=== PATIENT | male | born 1955 | race African-American/Black ===

== ENCOUNTER → 2021-01-28 10:50 | Outpatient (BNVA) | payer MEDICARE, MEDICAID, SELFPAY | DX: R31.9 Hematuria, unspecified (principal) | CPT/HCPCS: 99202 ==

== ENCOUNTER 2021-03-21 12:59 | Outpatient (REF) | payer MEDICARE, MEDICAID, SELFPAY ==
--- NOTE | ~2021-03-21 | CT_ITS ---
EXAMINATION: CT HEAD WITHOUT CONTRAST CLINICAL INFORMATION: Transient cerebral ischemic attack COMPARISON: None TECHNIQUE: Contiguous axial imaging was performed from the skull base to vertex without intravenous administration of contrast. This CT examination was performed using dose optimization techniques as appropriate, variously including the following: *Automated exposure control *Adjustment of mA and/or kV according to patient size (this includes techniques or standardized protocols for targeted exams where dose is matched to indication/reason for exam; i.e. extremities or head) *Use of iterative reconstruction technique DLP: 772 mGy-cm FINDINGS: There is no evidence of an extra-axial collection. There is no evidence of intra-axial or extra-axial hemorrhage. The ventricles and extra-axial CSF spaces are appropriate. There is a small area of low attenuation seen in the periventricular white matter of the right frontal lobe measuring 3 x 5 mm axial image 46 series 4. It is uncertain whether this represents periventricular white matter disease or could represent a small infarct. No mass or mass effect is seen. Review at bone windows is normal. Bony structures are normal. Visualized paranasal sinuses, mastoid air cells and middle ears are clear. CT/CT head/brain wo con IMPRESSION: Small focal area of low attenuation in the periventricular white matter of the right frontal lobe. It is uncertain whether this represents an area periventricular white matter disease or could represent a small infarct.
== END 2021-03-21 13:00 | disposition home or self-care (01) ==
LOC: HO.CT 12:59
PROVIDERS: PCP Internal Medicine Geriatric Medicine; Visit Provider Internal Medicine Geriatric Medicine
DX: G45.9 Transient cerebral ischemic attack, unspecified (principal)
CPT/HCPCS: 70450

== ENCOUNTER 2021-03-24 12:55 | Outpatient (REF) | payer MEDICARE, MEDICAID, SELFPAY ==
--- NOTE | ~2021-03-24 | US_ITS ---
EXAMINATION: US EXTRACRANIAL CAROTID DUPLEX, BILATERAL CLINICAL INFORMATION: TIA COMPARISON: None TECHNIQUE: Real-time ultrasound and Doppler techniques (integrating B-mode 2-D vascular images, Doppler spectral analysis and color-flow Doppler imaging) were utilized to interrogate the extracranial carotid arteries, the vertebral arteries and proximal subclavian arteries bilaterally. The degree of stenosis is determined by criteria similar to NASCET. FINDINGS: Right Side: 1. There is atherosclerotic plaque seen in the bifurcation/proximal ICA region. 2. The common carotid artery PSV proximally is 96.7 cm/s and distally 88.5 cm/s. 3. The proximal internal carotid artery velocities are 77.4 cm/s systolic and 22.9 cm/s diastolic. 4. The proximal external carotid artery PSV is 135 cm/s. 5. The vertebral artery shows antegrade flow. 6. The subclavian artery waveforms are normal. Left Side: 1. There is significant atherosclerotic plaque seen in the bifurcation/proximal ICA region. 2. The common carotid artery PSV proximally is 69.8 cm/s and distally 69.2 cm/s. 3. The proximal internal carotid artery velocities are 121 cm/s systolic and 38.3 cm/s diastolic. 4. The external carotid artery appears occluded 5. The vertebral artery shows antegrade flow. 6. The subclavian artery waveforms are normal. US/US carotid duplex BI IMPRESSION: 1. RIGHT: Minimal, non-hemodynamically significant stenosis of the proximal right internal carotid artery corresponding to a 0-49% stenosis by velocity criteria. 2. LEFT: Minimal, non-hemodynamically significant stenosis of the proximal left internal carotid artery corresponding to a 0-49% stenosis by velocity criteria. 3. There the left external carotid arteries appears occluded.
== END 2021-03-24 12:56 | disposition home or self-care (01) ==
LOC: HO.US 12:55
PROVIDERS: PCP Internal Medicine Geriatric Medicine; Visit Provider Internal Medicine Geriatric Medicine
DX: G45.9 Transient cerebral ischemic attack, unspecified (principal)
CPT/HCPCS: 93880

== ENCOUNTER → 2021-05-05 10:33 | Outpatient (BNVA) | payer MEDICARE, MEDICAID, SELFPAY | PROVIDERS: PCP Internal Medicine Geriatric Medicine; Visit Provider Surgery Vascular Surgery | DX: I65.23 Occlusion and stenosis of bilateral carotid arteries (principal) | CPT/HCPCS: 99202 ==

== ENCOUNTER 2021-11-24 12:24 | Outpatient (REF) | payer MEDICARE, MEDICAID, SELFPAY ==
--- NOTE | ~2021-11-24 | US_ITS ---
EXAMINATION: US EXTRACRANIAL CAROTID DUPLEX, BILATERAL CLINICAL INFORMATION: TIA COMPARISON: Carotid ultrasound 03/24/2021 TECHNIQUE: Real-time ultrasound and Doppler techniques (integrating B-mode 2-D vascular images, Doppler spectral analysis and color-flow Doppler imaging) were utilized to interrogate the extracranial carotid arteries, the vertebral arteries and proximal subclavian arteries bilaterally. The degree of stenosis is determined by criteria similar to NASCET. FINDINGS: Right Side: 1. There is mild atherosclerotic plaque seen in the bifurcation/proximal ICA region. 2. The common carotid artery PSV proximally is 86 cm/s and distally 93 cm/s. 3. The proximal internal carotid artery velocities are 68 cm/s systolic and 25 cm/s diastolic. 4. The proximal external carotid artery PSV is 89 cm/s. 5. The vertebral artery shows antegrade flow. 6. The subclavian artery waveforms are normal. Left Side: 1. There is moderate atherosclerotic plaque seen in the bifurcation/proximal ICA region. 2. The common carotid artery PSV proximally is 79 cm/s and distally 72 cm/s. 3. The proximal internal carotid artery velocities are 127 cm/s systolic and 49 cm/s diastolic. 4. The proximal external carotid artery is occluded. There is distal reconstitution. 5. The vertebral artery shows antegrade flow. 6. The subclavian artery waveforms are normal. US/US carotid duplex BI IMPRESSION: 1. RIGHT: Minimal, non-hemodynamically significant stenosis of the proximal right internal carotid artery corresponding to a 0-49% stenosis by velocity criteria. 2. LEFT: Moderate, hemodynamically significant stenosis of the proximal left internal carotid artery corresponding to a 50-79% stenosis by velocity criteria. 3. The left external carotid artery is occluded. 4. The category of disease in the left internal carotid artery has progressed from 0-49% to 50-79% 03/24/2021. The category of disease on the right internal carotid artery is stable.
== END 2021-11-24 12:25 | disposition home or self-care (01) ==
LOC: HO.US 12:24
PROVIDERS: Visit Provider Surgery Vascular Surgery
DX: I65.23 Occlusion and stenosis of bilateral carotid arteries (principal)
CPT/HCPCS: 93880

== ENCOUNTER → 2021-12-01 09:28 | Outpatient (BNVA) | payer MEDICARE, MEDICAID, SELFPAY | PROVIDERS: PCP Internal Medicine Geriatric Medicine; Visit Provider Surgery Vascular Surgery | DX: I65.23 Occlusion and stenosis of bilateral carotid arteries (principal) | CPT/HCPCS: 99212 ==

== ENCOUNTER 2022-12-11 09:26 | Outpatient (REF) | payer MEDICARE, MEDICAID, SELFPAY ==
--- NOTE | ~2022-12-11 | US_ITS ---
EXAMINATION: US EXTRACRANIAL CAROTID DUPLEX, BILATERAL CLINICAL INFORMATION: Carotid stenosis COMPARISON: 11/24/2021 and 03/24/2021 TECHNIQUE: Real-time ultrasound and Doppler techniques (integrating B-mode 2-D vascular images, Doppler spectral analysis and color-flow Doppler imaging) were utilized to interrogate the extracranial carotid arteries, the vertebral arteries and proximal subclavian arteries bilaterally. The degree of stenosis is determined by criteria similar to NASCET. FINDINGS: Right Side: 1. There is minimal atherosclerotic plaque seen in the bifurcation/proximal ICA region. 2. The common carotid artery PSV proximally is 81.6 cm/s and distally 76.2 cm/s. 3. The proximal internal carotid artery velocities are 72.0 cm/s systolic and 11.9 cm/s diastolic. 4. The proximal external carotid artery PSV is 68.9 cm/s. 5. The vertebral artery shows antegrade flow. 6. The subclavian artery waveforms are normal. Left Side: 1. There is moderate atherosclerotic plaque seen in the bifurcation/proximal ICA region. 2. The common carotid artery PSV proximally is 54.9 cm/s and distally 82.5 cm/s. 3. The proximal internal carotid artery velocities are 143 cm/s systolic and 52.0 cm/s diastolic. 4. The proximal external carotid artery is chronically occluded. 5. The vertebral artery shows antegrade flow. 6. The subclavian artery waveforms are normal. US/US carotid duplex BI IMPRESSION: 1. RIGHT: Minimal, non-hemodynamically significant stenosis of the proximal right internal carotid artery corresponding to a 0-49% stenosis by velocity criteria. 2. LEFT: Moderate, hemodynamically significant stenosis of the proximal left internal carotid artery corresponding to a 50-79% stenosis by velocity criteria. 3. 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 There is no change in the category severity of disease when compared to the previous study dated 11/24/2021.
== END 2022-12-11 09:27 | disposition home or self-care (01) ==
LOC: HO.US 09:26
PROVIDERS: PCP Internal Medicine Geriatric Medicine; Visit Provider Surgery Vascular Surgery
DX: I65.23 Occlusion and stenosis of bilateral carotid arteries (principal)
CPT/HCPCS: 93880

== ENCOUNTER 2023-01-30 09:25 | Outpatient (AMB) | payer MEDICARE, MEDICAID, SELFPAY ==
[2023-01-30 09:28] VITALS: BP 116/72; BMI 27.4
--- NOTE | 2023-01-30 09:28 | MHC.OFFVIS ---
Intake Vital Signs 01/30/23 09:28 01/30/23 09:34 Height 5 ft 6 in Weight 170 lb BMI 27.4 BP 116/72 108/60 Blood Pressure Location Lt brachial Rt brachial Position Sitting Sitting Intake Visit Reasons: 1 year follow up after carotid US 12/11/22 Intake Note: 1 yr follow up carotid US 12/11/22. Pt states no complaints Accompanied by: Self / Same As Patient Allergies No Known Allergies Allergy (Verified 01/30/23 09:31) HPI 1 year follow up after carotid US 12/11/22 HPI Details Very pleasant 67-year-old gentleman presents for follow-up regarding carotid disease. He has had routine surveillance follow-up for the last 2 years. It originally began with the history of a TIA episode. He has had no occurrences over the past 2 years. He is currently being maintained on aspirin and high-dose statin. He now presents for routine surveillance follow-up with ultrasound. [facility] Medical History Hematuria Chronic obstructive pulmonary disease (COPD) Hypertriglyceridemia Hypertriglyceridemia Primary osteoarthritis of hips, bilateral Social History Patient Tobacco Use Status: Former Tobacco user Review of Systems Const All systems reviewed & are unremarkable except as noted in HPI and below Reports no additional complaints ENT Reports Normal hearing present Card Denies chest pain, Denies chest pain at rest, Denies chest pain with activity and Denies pedal edema Resp Denies cough GI Denies abdominal pain Musc Denies abnormal gait, Denies muscle cramps and Denies radiating pain into limb Skin/Breast Denies skin ulcer and Denies wounds Neuro Reports Normal hearing present and Denies abnormal gait Psych Reports no additional complaints Physical Exam Vital Signs: Last Vital Signs BP 108/60 01/30/23 09:34 BMI result Body Mass Index 27.4 Const General: cooperative, healthy appearing and comfortable Orientation/consciousness: oriented to person, oriented to place and oriented to time HEENT Head: Yes normal to inspection Neck Neck: Yes normal visual inspection Carotids: no bruits Chest Chest palpation & inspection: normal inspection of the chest Resp Effort & Inspection: normal respiratory effort and able to speak in complete sentences Auscultation: clear to auscultation bilaterally, no crackles, no rales, no rhonchi and no wheezes Cardio Rate: regular rate Rhythm: regular rhythm Heart sounds: S1 normal heart sound present and S2 normal heart sound present Bruits: no carotid bruits Peripheral pulses: Peripheral pulses 2+ throughout GI Inspection: Yes normal to inspection Skin Wounds: no wounds Hair: normal Neuro General: oriented to person, oriented to place and oriented to time Cranial nerves: Yes CN's II-XII intact bilaterally and Yes Normal hearing present Cognition (Neuro): normal cognition Motor exam (neuro): 5/5 motor strength present throughout Extrem Other: venous exam: No significant superficial varicosities or spider telangiectasias, minimal edema General: No clubbing, No cyanosis and No edema Psych Appearance: grossly normal Mental Status: mental status grossly normal Speech and movement: Normal speech and movement present Results Reviewed Results Reviewed: Noninvasive carotid testing demonstrates right-sided 0-49 left side 50-79% with a peak systolic of only 143. Written report and images were reviewed. This testing was dated 12/11/2022 and is consistent with similar findings from a year ago. Assessment & Plan Assessment & Plan (1) Bilateral carotid artery stenosis: Code(s): I65.23 - Occlusion and stenosis of bilateral carotid arteries Plan: In short patient has asymptomatic carotid disease. We have reviewed signs and symptoms of a stroke. We also discussed risk factor modification inclusive a healthy diet low in cholesterol. The patient will follow up with us with surveillance ultrasound of the carotids 1 year. Should there be any changes or signs or symptoms of a stroke we will be happy to see them back sooner. Thank you for allowing us to participate in this patient's care. If there are any questions or concerns please do not hesitate to contact us. Orders: Orders US carotid duplex BI 364 Days I65.23 - Occlusion and stenosis of bilateral carotid arteries Coding Level of Care Code Est Pt Level 4 (54126) Diagnoses Bilateral carotid artery stenosis I65.23
[2023-01-30 09:34] VITALS: BP 108/60
== END 2023-01-30 09:50 | disposition home or self-care (01) ==
PROVIDERS: PCP Internal Medicine Geriatric Medicine; Visit Provider Surgery Vascular Surgery
DX: I65.23 Occlusion and stenosis of bilateral carotid arteries (principal)
CPT/HCPCS: 99213

== ENCOUNTER → 2023-01-30 09:25 | Outpatient (BNVA) | payer MEDICARE, MEDICAID, SELFPAY | PROVIDERS: PCP Internal Medicine Geriatric Medicine; Visit Provider Surgery Vascular Surgery | DX: I65.23 Occlusion and stenosis of bilateral carotid arteries (principal) | CPT/HCPCS: 99212 ==

== ENCOUNTER 2023-03-09 08:45 | Outpatient (REF) | payer MEDICARE, MEDICAID, SELFPAY ==
[2023-03-09 11:35] LABS: MANUAL DIFF FLAG NO
[2023-03-09 11:51] LABS: Alanine Aminotransferase 58 U/L (0-40); Alkaline Phosphatase 134 U/L (39-117); Anion Gap 12 (12-20); Aspartate Amino Transferase 36 U/L (5-37); Basophils Percent Auto 0.7 % (0-2); Bilirubin Total 1.4 mg/dL (0.0-1.0); Blood Urea Nitrogen 19 mg/dL (9-16); Calcium 9.4 mg/dL (8.4-10.2); Carbon Dioxide 24 mmol/L (22-29); Chloride 108 mmol/L (96-108); Cholesterol 117 mg/dL (<200); Eosinophils Absolute Auto 0.4 X10*3/uL (0.0-0.4); Eosinophils Percent Auto 9.6 % (0-4); Estimated Glomerular Filt Rate > 60; Glucose Random 116 mg/dL (60-115); HDL Cholesterol 52 mg/dL (>40); Hematocrit 44.5 % (42.0-52.0); Hemoglobin 15.1 g/dl (14.0-18.0); Imm Gran Abs Auto 0.01 X10*3/uL (0.00-0.03); Imm Gran Pct Auto 0.2 % (0.0-0.4); LDL Cholesterol Calculated 50 mg/dL (<100); Lymphocytes Absolute Auto 0.8 X10*3/uL (1.2-4.9); Lymphocytes Percent Auto 19.4 % (20-40); Mean Corpuscular HGB Conc 33.9 g/dl (31.0-36.0); Mean Corpuscular Hemoglobin 28.6 pg (27.0-33.0); Mean Corpuscular Volume 84.3 fL (80.0-98.0); Mean Platelet Volume 12.6 fL (9.4-12.4); Monocytes Absolute Auto 0.3 X10*3/uL (0.1-1.2); Monocytes Percent Auto 7.4 % (2-11); Neutrophils Absolute Auto 2.6 x10*3/uL (2.0-8.3); Neutrophils Percent Auto 62.7 % (45-73); Platelet Count 136 X10*3/uL (160-400); Potassium 3.8 mmol/L (3.3-5.1); Red Blood Count 5.28 X10*6/uL (4.60-5.80); Red Cell Distribution Width 13.1 % (11.0-16.0); Sodium 140 mmol/L (135-145); Total Protein 7.6 g/dL (6.5-8.0); Triglycerides 79 mg/dL (<150); White Blood Count 4.2 X10*3/uL (4.8-10.8)
== END 2023-03-09 08:46 | disposition home or self-care (01) ==
LOC: HO.HHCL 08:45
PROVIDERS: Visit Provider Internal Medicine Geriatric Medicine
DX: E11.9 Type 2 diabetes mellitus without complications (principal); I10 Essential (primary) hypertension; I65.23 Occlusion and stenosis of bilateral carotid arteries
CPT/HCPCS: 36415; 80053; 80061; 85025

== ENCOUNTER 2023-09-11 11:18 | Outpatient (REF) | payer OTHER, SELFPAY ==
[2023-09-11 13:48] LABS: Anion Gap 9 (12-20); Blood Urea Nitrogen 26 mg/dL (9-16); Calcium 9.1 mg/dL (8.4-10.2); Carbon Dioxide 31 mmol/L (22-29); Chloride 105 mmol/L (96-108); Estimated Glomerular Filt Rate > 60; Glucose Random 155 mg/dL (60-115); Potassium 3.9 mmol/L (3.3-5.1); Sodium 141 mmol/L (135-145)
== END 2023-09-11 11:19 | disposition home or self-care (01) ==
LOC: HO.HHCL 11:18
PROVIDERS: Visit Provider Internal Medicine Geriatric Medicine
DX: I10 Essential (primary) hypertension (principal)
CPT/HCPCS: 36415; 80048

== ENCOUNTER 2024-01-29 09:40 | Outpatient (REF) | payer OTHER, SELFPAY ==
--- NOTE | ~2024-01-29 | US_ITS ---
EXAMINATION: US EXTRACRANIAL CAROTID DUPLEX, BILATERAL CLINICAL INFORMATION: Carotid stenosis. History of left external carotid artery occlusion COMPARISON: 11/24/2021 and 12/11/2022 TECHNIQUE: Real-time ultrasound and Doppler techniques (integrating B-mode 2-D vascular images, Doppler spectral analysis and color-flow Doppler imaging) were utilized to interrogate the extracranial carotid arteries, the vertebral arteries and proximal subclavian arteries bilaterally. The degree of stenosis is determined by criteria similar to NASCET. FINDINGS: Right Side: 1. There is mild atherosclerotic plaque seen in the bifurcation/proximal ICA region. 2. The common carotid artery PSV proximally is 127 cm/s and distally 71.8 cm/s. 3. The proximal internal carotid artery velocities are 93.8 cm/s systolic and 18.7 cm/s diastolic. 4. The proximal external carotid artery PSV is 93.4 cm/s. 5. The vertebral artery shows antegrade flow. 6. The subclavian artery waveforms are normal. Left Side: 1. There is severe atherosclerotic plaque seen in the bifurcation/proximal ICA region. 2. The common carotid artery PSV proximally is 64.5 cm/s and distally 67.2 cm/s. 3. The proximal internal carotid artery velocities are 140 cm/s systolic and 45.1 cm/s diastolic. 4. The proximal external carotid artery is occluded 5. The vertebral artery shows antegrade flow. 6. The subclavian artery waveforms are normal. US/US carotid duplex BI IMPRESSION: 1. RIGHT: Minimal, non-hemodynamically significant stenosis of the proximal right internal carotid artery corresponding to a 0-49% stenosis by velocity criteria. 2. LEFT: Moderate, hemodynamically significant stenosis of the proximal left internal carotid artery corresponding to a 50-79% stenosis by velocity criteria. 3. There is no change in the category severity of disease when compared to the previous study dated 12/11/2022. Electronically signed by: Cayetano Nash MD 01/31/2024 02:42 PM EDT
== END 2024-01-29 09:41 | disposition home or self-care (01) ==
LOC: HO.US 09:40
PROVIDERS: PCP Internal Medicine Geriatric Medicine; Visit Provider Surgery Vascular Surgery
DX: I65.23 Occlusion and stenosis of bilateral carotid arteries (principal)
CPT/HCPCS: 93880

== ENCOUNTER 2024-03-05 11:19 | Outpatient (REF) | payer OTHER, SELFPAY ==
--- NOTE | ~2024-03-05 | XR_ITS ---
EXAMINATION: XR CHEST CLINICAL INFORMATION: Left-sided chest pain COMPARISON: None available. TECHNIQUE: 2 views of the chest were obtained. FINDINGS: Lungs grossly are clear. Minimal bilateral basilar pleural thickening seen. No acute effusions. Heart and pulmonary vessels are normal. XR/XR chest 2V IMPRESSION: No active disease. Electronically signed by: Richard Watt MD 03/05/2024 02:10 PM EDT RP
[2024-03-05 15:02] LABS: D Dimer High Sensitivity 256 NG/ML
== END 2024-03-05 11:20 | disposition home or self-care (01) ==
LOC: HO.HHCL 11:19
PROVIDERS: Visit Provider Emergency Medicine
DX: R07.89 Other chest pain (principal)
CPT/HCPCS: 36415; 71046; 85379

== ENCOUNTER 2024-04-28 11:36 | Outpatient (REF) | payer OTHER, SELFPAY ==
[2024-04-28 13:11] LABS: MANUAL DIFF FLAG NO
[2024-04-28 13:25] LABS: Basophils Absolute Auto 0.1 X10*3/uL (0.0-0.2); Basophils Percent Auto 1.4 % (0-2); Eosinophils Absolute Auto 0.2 X10*3/uL (0.0-0.4); Eosinophils Percent Auto 6.5 % (0-4); Hematocrit 43.6 % (42.0-52.0); Hemoglobin 14.6 g/dl (14.0-18.0); Imm Gran Abs Auto 0.01 X10*3/uL (0.00-0.03); Imm Gran Pct Auto 0.3 % (0.0-0.4); Lymphocytes Absolute Auto 1.2 X10*3/uL (1.2-4.9); Lymphocytes Percent Auto 34.3 % (20-40); Mean Corpuscular HGB Conc 33.5 g/dl (31.0-36.0); Mean Corpuscular Hemoglobin 28.6 pg (27.0-33.0); Mean Corpuscular Volume 85.3 fL (80.0-98.0); Mean Platelet Volume 11.9 fL (9.4-12.4); Monocytes Absolute Auto 0.3 X10*3/uL (0.1-1.2); Monocytes Percent Auto 9.6 % (2-11); Neutrophils Absolute Auto 1.7 x10*3/uL (2.0-8.3); Neutrophils Percent Auto 47.9 % (45-73); Platelet Count 155 X10*3/uL (160-400); Red Blood Count 5.11 X10*6/uL (4.60-5.80); Red Cell Distribution Width 13.2 % (11.0-16.0); White Blood Count 3.5 X10*3/uL (4.8-10.8)
[2024-04-28 13:39] LABS: Estimated Average Glucose 137 mg/dL; Hemoglobin A1C 169.9004 umol/L; Hemoglobin A1c % 6.4 % (<6.0)
[2024-04-28 13:49] LABS: Alanine Aminotransferase 64 U/L (0-40); Albumin Level 4.1 g/dL (3.5-5.0); Alkaline Phosphatase 104 U/L (39-117); Anion Gap 8 (12-20); Aspartate Amino Transferase 40 U/L (5-37); Bilirubin Total 1.2 mg/dL (0.0-1.0); Blood Urea Nitrogen 21 mg/dL (9-16); Calcium 9.4 mg/dL (8.4-10.2); Carbon Dioxide 31 mmol/L (22-29); Chloride 102 mmol/L (96-108); Cholesterol 130 mg/dL (<200); Estimated Glomerular Filt Rate > 60; Glucose Random 115 mg/dL (60-115); HDL Cholesterol 47 mg/dL (>40); LDL Cholesterol Calculated 60 mg/dL (<100); Potassium 4.3 mmol/L (3.3-5.1); Sodium 137 mmol/L (135-145); Total Protein 7.9 g/dL (6.5-8.0); Triglycerides 118 mg/dL (<150)
[2024-04-28 14:08] LABS: Creatinine Urine 40.66 mg/dL; Microalbumin Urine < 5.0 mg/L
[2024-04-29 08:33] LABS: ~Hepatitis C Antibody Nonreactive (Nonreactive)
== END 2024-04-28 11:37 | disposition home or self-care (01) ==
LOC: HO.HHCL 11:36
PROVIDERS: Visit Provider Internal Medicine Geriatric Medicine
DX: Z11.59 Encounter for screening for other viral diseases (principal); E11.69 Type 2 diabetes mellitus with other specified complication; I10 Essential (primary) hypertension; Z86.73 Personal history of transient ischemic attack (TIA), and cerebral infarction without residual deficits
CPT/HCPCS: 36415; 80053; 80061; 82043; 82570; 83036; 85025; 86803

== ENCOUNTER 2024-09-04 11:51 | Outpatient (REF) | payer OTHER, SELFPAY ==
[2024-09-04 13:18] LABS: MANUAL DIFF FLAG NO
[2024-09-04 13:36] LABS: Basophils Percent Auto 0.9 % (0-2); Eosinophils Absolute Auto 0.2 X10*3/uL (0.0-0.4); Eosinophils Percent Auto 5.4 % (0-4); Hematocrit 44.3 % (42.0-52.0); Hemoglobin 15.2 g/dl (14.0-18.0); Imm Gran Abs Auto 0.01 X10*3/uL (0.00-0.03); Imm Gran Pct Auto 0.3 % (0.0-0.4); Lymphocytes Absolute Auto 1.2 X10*3/uL (1.2-4.9); Lymphocytes Percent Auto 35.5 % (20-40); Mean Corpuscular HGB Conc 34.3 g/dl (31.0-36.0); Mean Corpuscular Hemoglobin 29.3 pg (27.0-33.0); Mean Corpuscular Volume 85.4 fL (80.0-98.0); Mean Platelet Volume 11.7 fL (9.4-12.4); Monocytes Absolute Auto 0.3 X10*3/uL (0.1-1.2); Monocytes Percent Auto 9.7 % (2-11); Neutrophils Absolute Auto 1.7 x10*3/uL (2.0-8.3); Neutrophils Percent Auto 48.2 % (45-73); Platelet Count 161 X10*3/uL (160-400); Red Blood Count 5.19 X10*6/uL (4.60-5.80); Red Cell Distribution Width 13.1 % (11.0-16.0); White Blood Count 3.5 X10*3/uL (4.8-10.8)
[2024-09-04 13:55] LABS: Alanine Aminotransferase 65 U/L (0-40); Anion Gap 11 (12-20); Aspartate Amino Transferase 41 U/L (5-37); Bilirubin Total 0.7 mg/dL (0.0-1.0); Blood Urea Nitrogen 25 mg/dL (9-16); Calcium 9.2 mg/dL (8.4-10.2); Carbon Dioxide 29 mmol/L (22-29); Chloride 104 mmol/L (96-108); Estimated Glomerular Filt Rate > 60; Glucose Random 117 mg/dL (60-115); Potassium 4.3 mmol/L (3.3-5.1); Sodium 140 mmol/L (135-145); Total Protein 7.7 g/dL (6.5-8.0)
[2024-09-04 14:09] LABS: Alkaline Phosphatase 111 U/L (39-117)
--- OUTSIDE RECORDS SUMMARY | 2024-09-04 14:49 | XMS_ITS | Encounter Summary ---
Author Organization [employer] Address [address] [place] [address] [address] [address] Care Team Providers Care Assistant Community Manager Name Role Phone Name, Fuad MASSEY Primary Care Provider [phone] Encounter Details Date Type Department Care Team (Late st Contact Info) Description 05/31/2022 Orders Only [facility] [address] [place] [address] Radha Thomson LPN Social History Tobacco Use Types Packs/Day Years Used Date Smoking Tobacco: Never Assessed Sex and Gender Information Value Date Recorded Sex Assigned at Male 03/20/2022 10:15 AM EDT Legal Sex Male 10:15 AM EDT Gender Identity Male 03/20/2022 10:15 AM EDT Sexual Orientation Straight 03/20/2022 10 :15 AM EDT documented as of this encounter Plan of Treatment Not on file documented as of this encounter Visit Diagnoses Not on filedocumented in this encounter Care Teams Assistant Community Manager Relationship Specialty Start Date End Date Name, MD Fuad [address] [place] [address] PCP - General Family Medicine 07/23/15 documented as of this encounter
--- OUTSIDE RECORDS SUMMARY | 2024-09-04 14:49 | XMS_ITS | Encounter Summary ---
Author Organization [employer] Address [address] [place] [address] [address] [address] Care Team Providers Care Laborer Chicken Farm Name Role Phone Name, Fuad MASSEY Primary Care Provider [phone] Encounter Details Date Type Department Care Team ([facility] st Contact Info) Description 06/27/2022 Orders Only [facility] [address] [place] [address] Jeanine Reyes LPN Social History Tobacco Use Types Packs/Day [...] on filedocumented in this encounter Care Teams Laborer Chicken Farm Relationship Specialty Start Date End Date Name, MD Fuad [address] [place] [id number] PCP - General Family Medicine 07/23/15 documented as of this encounter
--- OUTSIDE RECORDS SUMMARY | 2024-09-04 14:49 | XMS_ITS | Encounter Summary ---
Author Organization [employer] Address [address] [place] [address] [address], [place] [address] Care Team Providers Care Bander Hand Name Role Phone Name, Fuad MASSEY Primary Care Provider [phone] Reason for Visit * Reason Comments Med Refill Encounter Details Date Type Department Care Team ([facility] st Contact Info) Description 05/29/2023 Refill [facility] [address] [place], [place] [phone] Name, MD Fuad [address] [place] [address] High triglycerides Social History Tobacco Use Types Packs/Day Years Used Date Smoking Tobacco: Former Cigarettes Alcohol Use Standard Drinks/Week Comments Never 0 (1 standard drink = 0.6 oz pur e alcohol) Depression Answer Date Recorded Patient Health Questionnaire-9 Score 0 09/06/2022 Housing Stability Answer Date Recorded What is your housing situation today? I have kallie rachel 03/07/[address] you li ve. Do you have problems with any of the following? None of the above 03/07/2023 Food Insecurity Answer Date Recorded Within the past 12 months, y ou worried that your food would run out before you got money to buy more: Never True 03/07/2023 Within the past 12 months,th e food you bought just didn't last and you didn't have enough money to get more: Never True Transportation Answer Date Recorded In the past 12 months, has l ack of transportation kept you from medical appts, meetings, work or from getting things needed for daily living? No 03/07/2023 Utilities Answer Date Recorded In the past 12 months, has t he electric, gas, oil or water company threatened to shut off services in your home? No 03/07/2023 Depression Answer Date Recorded Patient Health Questionnaire-2 Score 0 09/06/2022 Sex and Gender Information Value Date Recorded Sex Assigned at Male 03/20/2022 10:15 AM EDT Legal Sex Male 10:15 AM EDT Gender Identity Male 03/20/2022 10:15 AM EDT Sexual Orientation Straight 03/20/2022 10 :15 AM EDT documented as of this encounter Plan of Treatment Not on file documented as of this encounter Visit Diagnoses Diagnosis High triglycerides Unspecified disorder of lipoid metabolism documented in this encounter Additional Health Concerns Assessment Noted Time PHQ-9 Depression Total Score: 0 09/07/19 23 11:16 AM EDT documented as of this encounter Care Teams Bander Hand Relationship Specialty Start Date End Date Name, MD Fuad [address] [place] [address] PCP - General Family Medicine 07/23/15 documented as of this encounter
--- OUTSIDE RECORDS SUMMARY | 2024-09-04 14:49 | XMS_ITS | Encounter Summary ---
Author Organization [employer] Address [address] [place] [address] [address] [address] Care Team Providers Care Core Machine Tender Name Role Phone Name, Fuad MASSEY Primary Care Provider Reason for Visit * Reason Comments Med Refill Encounter Details Date Type Department Care Team ([facility] st Contact Info) Description 06/25/2024 Refill [facility] MED & PEDS [address] [place], [place] [id number] [facility] [address] [place] [address] Heartburn Social History Tobacco Use Types Packs/Day Years Used Date Smoking Tobacco: Former Cigarettes Alcohol Use Standard Drinks/Week Comments Never 0 (1 standard drink = 0.6 oz pur e alcohol) Depression Answer Date Recorded Patient Health Questionnaire-9 Score 0 09/11/2023 Patient Health Questionnaire-9 Score 0 09/11/2023 Last PHQ-9: Questionnaire Data Not on file 0 09/11/2023 Housing Stability Answer Date Recorded What is your housing situation today? I have kallie ramos 09/11/[address] you li ve. Do you have problems with any of the following? None of the above 09/11/2023 Food Insecurity Answer Date Recorded Within the past 12 months, y ou worried that your food would run out before you got money to buy more: Never True 09/11/2023 Within the past 12 months,th e food you bought just didn't last and you didn't have enough money to get more: Never True Transportation Answer Date Recorded In the past 12 months, has l ack of transportation kept you from medical appts, meetings, work or from getting things needed for daily living? No 09/11/2023 Utilities Answer Date Recorded In the past 12 months, has t he electric, gas, oil or water company threatened to shut off services in your home? No 09/11/2023 Depression Answer Date Recorded Patient Health Questionnaire-2 Score 0 09/11/2023 Sex and Gender Information Value Date Recorded Sex Assigned at Male 03/20/2022 10:15 AM EDT Legal Sex Male 10:15 AM EDT Gender Identity Male 03/20/2022 10:15 AM EDT Sexual Orientation Straight 03/20/2022 10 :15 AM EDT documented as of this encounter Plan of Treatment Not on file documented as of this encounter Visit Diagnoses Diagnosis Heartburn documented in this encounter Additional Health Concerns Assessment Noted Time PHQ-9 Depression Total Score: 0 09/11/19 24 10:55 AM EDT documented as of this encounter Care Teams Core Machine Tender Relationship Specialty Start Date End Date Name, MD Fuad [address] [place] [address] PCP - General Family Medicine 07/23/15 documented as of this encounter
--- OUTSIDE RECORDS SUMMARY | 2024-09-04 14:49 | XMS_ITS | Encounter Summary ---
Author Organization [employer] Address [address] [place] [address] [address] [address] Care Team Providers Care Epoxy Fabrication Supervisor Name Role Phone Name, Fuad MASSEY Primary Care Provider [phone] Encounter Details Date Type Department Care Team (Late st Contact Info) Description 04/28/2022 Orders Only [facility] [address] [place] [address] Radha Thomson LPN Social History Tobacco Use [...] on filedocumented in this encounter Care Teams Epoxy Fabrication Supervisor Relationship Specialty Start Date End Date Name, MD Fuad [address] [place] [address] PCP - General Family Medicine 07/23/15 documented as of this encounter
--- OUTSIDE RECORDS SUMMARY | 2024-09-04 14:49 | XMS_ITS | Encounter Summary ---
Author Organization [employer] Address [address] [facility] [address], [place] [address] Care Team Providers Care Leather Grainer Name Role Phone Name, Fuad MASSEY Primary Care Provider [phone] Reason for Visit * Reason Onset Date Comments chart prep 09/01/2024 Encounter Details Date Type Department Care Team ([facility] st Contact Info) Description 09/01/2024 Telephone [facility] [address] [place], [place] [phone] Name, MD Fuad [address] [place] [address] chart prep Social History Tobacco Use Types Packs/Day Years [...] your housing situation today? I have kallie ramso 09/11/[address] you li [...] AM EDT documented as of this encounter Miscellaneous Notes * Telephone Encounter - Veronica Pringle [place] - 09/01/2024 11:54 AM EDT Chart Prep Labs: done Images: not applicable Referrals: not applicable Vaccines due: yes, rsv. Screenings: colonoscopy Overdue care gaps: A1c, Glucose, SDOH, PHQ-9, RAÚL-7, and Disability screen documented in this encounter Plan of Treatment Not on file documented as of this encounter Visit Diagnoses Not on filedocumented in this encounter Additional Health Concerns Assessment Noted Time PHQ-9 Depression Total Score: 0 09/11/19 24 10:55 AM EDT documented as of this encounter Care Teams Leather Grainer Relationship Specialty Start Date End Date Name, MD Fuad [address] [place] [address] PCP - General Family Medicine 07/23/15 documented as of this encounter
--- OUTSIDE RECORDS SUMMARY | 2024-09-04 14:49 | XMS_ITS | Encounter Summary ---
Author Organization [employer] Address [address] [place] [address] Care Team Providers Care Survival Equipment Repairer Name Role Phone Name, Fuad MASSEY Primary Care Provider [phone] Reason for Visit * Reason Comments Med Refill Encounter Details Date Type Department Care Team ([facility] st Contact Info) Description 11/29/2023 Refill [facility] [address] [place], [place] [phone] Name, MD Fuad [address] [place] [address] TIA (transient ischemic attack) Social History Tobacco Use Types Packs/Day Years [...] as of this encounter Visit Diagnoses Diagnosis TIA (transient ischemic attack) Unspecified transient cerebral ischemia documented in this encounter Additional Health Concerns Assessment Noted Time PHQ-9 Depression Total Score: 0 09/11/19 24 10:55 AM EDT documented as of this encounter Care Teams Survival Equipment Repairer Relationship Specialty Start Date End Date Name, MD Fuad [address] [place] [id number] PCP - General Family Medicine 07/23/15 documented as of this encounter
--- OUTSIDE RECORDS SUMMARY | 2024-09-04 14:49 | XMS_ITS | Encounter Summary ---
Author Organization [employer] Address [address] [place] [address] Care Team Providers Care Manager Outpatient Name Role Phone Name, Fuad MASSEY Primary Care Provider [phone] Reason for Visit * Reason Comments Med Refill Encounter Details Date Type Department Care Team ([facility] st Contact Info) Description 10/29/2023 Refill [facility] [address] [place] [address] Name, MD Fuad [address] [place] [address] Social History Tobacco Use Types Packs/Day Years [...] documented as of this encounter Care Teams Manager Outpatient Relationship Specialty Start Date End Date Name, MD Fuad [address] [place] [address] PCP - General Family Medicine 07/23/15 documented as of this encounter
--- OUTSIDE RECORDS SUMMARY | 2024-09-04 14:49 | XMS_ITS | Encounter Summary ---
Author Organization [employer] Address [address] [place] [address] [place], [place] [address] Care Team Providers Care Geometrician Name Role Phone Name, Fuad MASSEY Primary Care Provider [phone] Encounter Details Date Type Department Care Team ([facility] st Contact Info) Description 07/20/2022 Orders Only [facility] [address] [place] [address] Jeanine Reyes LPN Social History Tobacco Use [...] on filedocumented in this encounter Care Teams Geometrician Relationship Specialty Start Date End Date Name, MD Fuad [address] [place] [address] PCP - General Family Medicine 07/23/15 documented as of this encounter
--- OUTSIDE RECORDS SUMMARY | 2024-09-04 14:49 | XMS_ITS | Encounter Summary ---
Author Organization [employer] Address [address] [place] [address] Care Team Providers Care Customer Experience Leader Name Role Phone Name, Fuad MASSEY Primary Care Provider [phone] Reason for Visit * Reason Comments Med Refill Encounter Details Date Type Department Care Team ([facility] st Contact Info) Description 11/05/2023 Refill [facility] [address] [place] [address] Name, MD Fuad [address] [place] [address] Social History Tobacco Use Types Packs/Day Years [...] documented as of this encounter Care Teams Customer Experience Leader Relationship Specialty Start Date End Date Name, MD Fuad [address] [place] [address] PCP - General Family Medicine 07/23/15 documented as of this encounter
--- OUTSIDE RECORDS SUMMARY | 2024-09-04 14:49 | XMS_ITS | Encounter Summary ---
Author Organization [employer] Address [address] [place] [address] [address] Care Team Providers Care Toll Collector Supervisor Name Role Phone Name, Fuad MASSEY Primary Care Provider [phone] Encounter Details Date Type Department Care Team (Late st Contact Info) Description 10/23/2022 Abstract [facility] [address] [place] [address] Name, MD Fuad [address] [place] [address] Social History Tobacco Use Types Packs/Day Years Used Date Smoking Tobacco: Never Depression Answer Date Recorded Patient Health Questionnaire-9 Score 0 09/06/2022 Depression Answer Date Recorded Patient Health Questionnaire-2 Score 0 09/06/2022 Sex and Gender Information Value Date Recorded Sex Assigned at Male 03/20/2022 10:15 AM EDT Legal Sex Male 10:15 AM EDT Gender Identity Male 03/20/2022 10:15 AM EDT Sexual Orientation Straight 03/20/2022 10 :15 AM EDT COVID-19 Exposure Response Date Recorded In the last 10 days, have yo u been in contact with someone who was confirmed or suspected to have Coronavirus/COVID-19? No / Unsure 10/04/2022 8:55 AM EDT documented as of this encounter Plan of Treatment Not on file documented as of this encounter Procedures Procedure Name Priority Date/Time Associated Diagnosis Comments COLONOSCOPY Routine 03/13/2013 11:53 AM EDT documented in this encounter Results * Colonoscopy (03/13/2013 11:53 AM EDT) Colonoscopy Normal Normal Narrative Bonnie Del Rio - 03/13/2013 11:53 AM EDT Recommended 7 year follow up ( [facility] ) us Historical Provider HEALTH MAINTENANCE Final Result documented in this encounter Visit Diagnoses Not on filedocumented in this encounter Additional Health Concerns Assessment Noted Time PHQ-9 Depression Total Score: 0 09/07/19 23 11:16 AM EDT documented as of this encounter Care Teams Toll Collector Supervisor Relationship Specialty Start Date End Date Name, MD Fuad [address] [place] [address] PCP - General Family Medicine 07/23/15 documented as of this encounter
--- OUTSIDE RECORDS SUMMARY | 2024-09-04 14:49 | XMS_ITS | Encounter Summary ---
Author Organization [employer] Address [address] [facility] [address] [address] Care Team Providers Care Preparatory Technician Name Role Phone Name, Fuad MASSEY Primary Care Provider [phone] Reason for Visit * Reason Comments Med Refill Encounter Details Date Type Department Care Team ([facility] st Contact Info) Description 06/28/2023 Refill [facility] MED & P[facility] [address] [place], [place] [phone] Name, MD Fuad [address] [place] [address] Chronic pain syndrome Social History Tobacco Use Types Packs/Day Years Used Date Smoking Tobacco: Former Cigarettes Alcohol Use Standard Drinks/Week Comments Never 0 (1 standard drink = 0.6 oz pur e alcohol) Depression Answer Date Recorded Patient Health Questionnaire-9 Score 0 09/06/2022 Housing Stability Answer Date Recorded What is your housing situation today? I have kallie ramos 03/07/[address] you li [...] t he electric, gas, oil or water [employer] threatened to shut off services in your [...] as of this encounter Visit Diagnoses Diagnosis Chronic pain syndrome documented in this encounter Additional Health Concerns Assessment Noted Time PHQ-9 Depression Total Score: 0 09/07/19 23 11:16 AM EDT documented as of this encounter Care Teams Preparatory Technician Relationship Specialty Start Date End Date Name, MD Fuad [address] [place] [address] PCP - General Family Medicine 07/23/15 documented as of this encounter
--- OUTSIDE RECORDS SUMMARY | 2024-09-04 14:49 | XMS_ITS | Encounter Summary ---
Author Organization [employer] Address [address] [place] [address] Care Team Providers Care Maintainer Central Office Name Role Phone Name, Fuad MASSEY Primary Care Provider Reason for Visit * Reason Comments Follow-up Encounter Details Date Type Department Care Team (Latest Contact Info) Description 09/04/2024 11:15 AM EDT Office Visit [facility] [address] [place] [phone] Name, MD Fuad [address] [place] [phone] Type 2 diabetes mellitus with other specified complication, without long-term current use of insulin (CMS/HCC) (Primary Dx); Low platelet count (CMS/HCC); Transaminitis; Leukopenia, unspecified type; Diabetic polyneuropathy associated with type 2 diabetes mellitus (CMS/HCC) Social History Tobacco Use Types Packs/Day Years Used Date Smoking Tobacco: Former Cigarettes Alcohol Use Standard Drinks/Week Comments Never 0 (1 standard drink = 0.6 oz pur e alcohol) Depression Answer Date Recorded Patient Health Questionnaire-9 Score 27 09/04/2024 Patient Health Questionnaire-9 Score 27 09/04/2024 Last PHQ-9: Questionnaire Data Not on file 0 09/04/2024 Housing Stability Answer Date Recorded What is [...] to shut off services in your home? Yes 09/04/2024 Depression Answer Date Recorded Patient Health Questionnaire-2 Score 6 09/04/2024 Internet Access Answer Date Recorded Internet Access Q1 No 09/04/2024 Internet Access Q2 I do not want or need it 08/19 Sex and Gender Information Value Date Recorded Sex Assigned at Male 03/20/2022 10:15 AM EDT Legal Sex Male 10:15 AM EDT Gender Identity Male 03/20/2022 10:15 AM EDT Sexual Orientation Straight 03/20/2022 10 :15 AM EDT documented as of this encounter Last Filed Vital Signs Vital Sign Reading Time Taken Comments Blood Pressure 125/82 09/04/2024 11:18 AM EDT Pulse 84 09/04/2024 11:18 AM EDT Temperature 36.7 ??C (98.1 ??F) 09/04/2024 11:18 AM E DT Respiratory Rate 21 09/04/2024 11:18 AM EDT Oxygen Saturation 98% 09/04/2024 11:18 AM EDT Inhaled Oxygen Concentration - - Weight 75.6 kg (166 lb 9.6 oz) 09/04/2024 11:18 AM EDT Height 167.6 cm (5' 6 ) 09/04/2024 11:18 AM EDT Body Mass Index 26.89 09/04/2024 11:18 AM EDT documented in this encounter Plan of Treatment Not on file documented as of this encounter Procedures Procedure Name Priority Date/Time Associated Diagnosis Comments CBC WITH AUTO DIFFERENTIAL Routine 09/04/2024 11:53 AM EDT Low platelet count (CMS/HCC) COMPREHENSIVE METABOLIC PANEL Routine 09/04/2024 11:53 AM EDT Transaminitis POCT GLYCATED HEMOGLOBIN, TOTAL Routine 09/04/2024 11:22 AM EDT Type 2 diabetes mellitus with other specified complication, without long-term current use of insulin ([facility]) POCT GLUCOSE Routine 09/04/2024 11:21 AM EDT Type 2 diabetes mellitus with other specified complication, without long-term current use of insulin ([facility]) documented in this encounter Results * (ABNORMAL) Comprehensive Metabolic Panel (09/04/2024 11:53 AM EDT) Sodium 140 135 - 145 mmol/L [facility] Potassium 4.3 3.3 - 5.1 mmol/L [facility] Chloride 104 96 - 108 mmol/L [facility] Carbon Dioxide 29 22 - 29 mmol/L [facility] Anion Gap 11(L) 12 - 20 [facility] Urea Nitrogen (BUN) 25(H) 9 - 16 mg/dL [facility] Creatinine, Serum 0.84 0.5 - 1.4 mg/dL [facility] Estimated Glomerular Filt Rate >60 [facility] Comment:Chronic Kidney Disea se: Estimated GFR < 60 mL/min/[id number] Kidney Disease: Estimated GFR < 15 mL/min/1.73m2 Glucose 117(H) 60 - 115 mg/dL [facility] Calcium 9.2 8.4 - 10.2 mg/dL [facility] Bilirubin, Total 0.7 0.0 - 1.0 mg/dL [facility] Aspartate Amino Transferase 41(H) 5 - 37 U/L [facility] Alanine Aminotransferase 65(H) 0 - 40 U/L [facility] Total Protein 7.7 6.5 - 8.0 g/dL [facility] Albumin Level 4.0 3.5 - 5.0 g/dL [facility] Alkaline Phosphatase 111 39 - 117 U/L [facility] Blood Venous blood specimen / Unknown 09/04/2024 11:53 AM EDT 09/04/2024 1:15 PM EDT us Fuad Name MD LAB BLOOD ORDERABLES Final Resul t [facility] [address] [place] [address] [phone] * (ABNORMAL) CBC auto differential (09/04/2024 11:53 AM EDT) White Blood Count 3.5(L) 4.8 - 10.8 X10*3/uL [facility] Red Blood Count 5.19 4.60 - 5.80 X10*6/uL [facility] Hemoglobin 15.2 14.0 - 18.0 g/dl [facility] Hematocrit 44.3 42.0 - 52.0 % [facility] Mean Corpuscular Volume 85.4 80.0 - 98.0 fL [facility] Mean Corpuscular Hemoglobin 29.3 27.0 - 33.0 pg [facility] Mean Corpuscular HGB Conc 34.3 31.0 - 36.0 g/dl [facility] Red Cell Distribution Width 13.1 11.0 - 16.0 % [facility] Platelet Count 161 160 - 400 X10*3/uL [facility] Mean Platelet Volume 11.7 9.4 - 12.4 fL [facility] Neutrophils Percent Auto 48.2 45 - 73 % [facility] Imm Gran Pct Auto 0.3 0.0 - 0.4 % [facility] Lymphocytes Percent Auto 35.5 20 - 40 % [facility] Monocytes Percent Auto 9.7 2 - 11 % [facility] Eosinophils Percent Auto 5.4(H) 0 - 4 % [facility] Basophils Percent Auto 0.9 0 - 2 % [facility] NRBC Pct Auto 0.0 0.0 - 0.2 /100WBC [facility] Neutrophils Absolute Auto 1.7(L) 2.0 - 8.3 x10*3/uL [facility] Imm Gran Abs Auto 0.01 0.00 - 0.03 X10*3/uL [facility] Lymphocytes Absolute Auto 1.2 1.2 - 4.9 X10*3/uL [facility] Monocytes Absolute Auto 0.3 0.1 - 1.2 X10*3/uL [facility] Eosinophils Absolute Auto 0.2 0.0 - 0.4 X10*3/uL [facility] Basophils Absolute Auto 0.0 0.0 - 0.2 X10*3/uL [facility] NRBC Abs Auto 0.000 0.0 - 0.012 X10*3/uL [facility] Blood Venous blood specimen / Unknown 09/04/2024 11:53 AM EDT 09/04/2024 1:15 PM EDT Result Gerardo Arroyo MD LAB BLOOD ORDERABLES Final Resul t [facility] [address] [place] [phone] * (ABNORMAL) POCT HGB A1C (09/04/2024 11:22 AM EDT) Hemoglobin A1C 6.5(A) 4.0 - 6.0 % [employer] Lot # [id number] Lot# Expiration Date [id number] Blood 09/04/2024 11:2 2 AM EDT Result Gerardo Arroyo MD POINT OF CARE TEST ENTER/EDIT OR DERABLES Final Result * POCT Glucose (09/04/2024 11:21 AM EDT) Glucose Blood, POC 132 60 - 200 mg/dL [employer] Lot # [id number] Lot# Expiration Date 82,625 Blood Capillary blood specimen / Unknown 09/04/2024 11:21 AM EDT Result Gerardo Arroyo MD POINT OF CARE TEST ENTER/EDIT OR DERABLES Final Result documented in this encounter Visit Diagnoses Diagnosis Type 2 diabetes mellitus with other specified complication, without long-term current use of insulin (CMS/HCC)- Primary Low platelet count (CMS/HCC) Transaminitis Nonspecific elevation of levels of transaminase or lactic acid dehydrogenase (LDH) Leukopenia, unspecified type Diabetic polyneuropathy associated with type 2 diabetes mellitus (CMS/HCC) documented in this encounter Additional Health Concerns Assessment Noted Time PHQ-9 Depression Total Score: 27 025 11:38 AM EDT documented as of this encounter Care Teams Maintainer Central Office Relationship Specialty Start Date End Date Name, MD Fuad [address] [place] [address] PCP - General Family Medicine 07/23/15 documented as of this encounter
--- OUTSIDE RECORDS SUMMARY | 2024-09-04 14:49 | XMS_ITS | Clinical Summary ---
Author Organization [employer] Address [address] [place] [address] [address], [place] [address] Care Team Providers Care [employer]rain [employer] Inspector Name Role Phone Name, Fuad MASSEY Primary Care Provider [phone] Allergies No known active allergies Medications loratadine (Claritin) 10 MG tabletIndication s:Other seasonal allergic rhinitis TAKE 1 TABLET BY MOUTH EVERY DAY 90 tablet 3 10/16/19 24 Active omega-3 (Fish Oil) 1000 MG capsuleIndicatio ns:High triglycerides TAKE 1 CAPSULE BY MOUTH TWICE DAILY (for cholesterol ) 60 capsule 8 03/18/20 24 Active atorvastatin (Lipitor) 80 MG tabletIndication s:Chronic pain syndrome TAKE 1 TABLET BY MOUTH EVERY MORNING 90 tablet 3 07/24/19 25 Active lisinopril-hydro CHLOROthiazide 20-12.5 MG tablet TAKE 1 TABLET BY MOUTH EVERY MORNING 90 tablet 3 07/24/19 25 Active aspirin (Aspirin Low Dose) 81 MG EC tabletIndication s:TIA (transient ischemic attack) TAKE 1 TABLET BY MOUTH EVERY MORNING 90 tablet 1 08/26/19 25 Active omeprazole (PriLOSEC) [address] capsuleIndicatio ns:Heartburn TAKE 1 CAPSULE BY MOUTH EVERY DAY IN THE MORNING 30 capsule 08/29/19 25 Active naproxen (Naprosyn) 500 MG tablet TAKE 1 TABLET BY MOUTH TWICE DAILY 60 tablet 08/29/19 25 Active gabapentin (Neurontin) 100 MG capsule Take 2 capsules (200 mg) by mouth at bedtime. 60 capsule 11 09/05/19 25 026 Active aspirin (Aspirin Adult Low Strength) 81 MG EC tabletIndication s:TIA (transient ischemic attack) TAKE 1 TABLET BY MOUTH EVERY MORNING 90 tablet 1 03/05/20 24 025 Discontinued omeprazole (PriLOSEC) [address] capsuleIndicatio ns:Heartburn TAKE 1 TABLET BY MOUTH EVERY DAY 30 capsule 07/30/19 25 025 Discontinued naproxen (Naprosyn) 500 MG tablet TAKE 1 TABLET BY MOUTH TWICE DAILY 60 tablet 07/30/19 25 025 Discontinued gabapentin (Neurontin) 100 MG capsuleIndicatio ns:Heartburn TAKE 1 CAPSULE BY MOUTH AT BEDTIME 30 capsule 07/30/19 25 025 Discontinued gabapentin (Neurontin) 100 MG capsuleIndicatio ns:Heartburn TAKE 1 CAPSULE BY MOUTH EVERY DAY AT BEDTIME 30 capsule 08/29/19 25 025 Discontinued(Do se adjustment) Active Problems Problem Noted Date Diagnosed Date Diabetic polyneuropathy asso ciated with type 2 diabetes mellitus 09/04/2024 Leukopenia 09/08/2022 Low platelet count 09/08/2022 Atherosclerosis of both carotid arteries 023 TIA (transient ischemic attack) 09/06/2022 Impacted cerumen 01/24/2018 Type 2 diabetes mellitus 10/08/2017 Chronic obstructive lung disease 04/24/2017 Epigastric pain 04/24/2017 Chronic cough 10/29/2012 Rash 10/29/2012 Erectile dysfunction 02/20/2012 Hypertension 02/20/2012 Hypertriglyceridemia 02/20/2012 Smoker 02/20/2012 Encounters Date Type Department Care Team Description 09/04/2024 11:15 AM EDT Office Visit [facility] [address] [place] [phone] NameFuad MD Type 2 diabetes mellitus with other specified complication, without long-term current use of insulin ([facility]) (Primary Dx); Low platelet count (CMS/HCC); Transaminitis; Leukopenia, unspecified type; Diabetic polyneuropathy associated with type 2 diabetes mellitus (CMS/HCC) 09/04/2024 Travel 09/01/2024 Telephone [facility] [address], [place] [phone] Fuad Arroyo MD chart prep 08/27/2024 Refill [facility] [address], [place] [phone] Fuad Arryoo MD Heartburn 08/24/2024 Refill [facility] [address] [place] [phone] Name, MD Fuad TIA (transient ischemic attack) 07/28/2024 Refill [facility] [address] [place] [address] Name, MD Fuad Heartburn 07/23/2024 Refill [facility] [address] [place] [address] Dina, MD Fuad 07/23/2024 Refill [facility] [address] [place] [address] Krystina Willams, MANAGER PRIMARY CARE Chronic pain syndrome 07/04/2024 9:15 AM EST Office Visit [facility] [address] [place] [address] Barron-Gilbert, Elizabeth, DDS 06/25/2024 Refill [facility] [address], [place] [phone] [facility], MANAGER PRIMARY CARE Heartburn 06/25/2024 Refill [facility] [address] [place] [address] Name, MD Fuad from Last 3 Months Immunizations Name Administration Dates Next Due Hep A, Adult 02/20/2012,05/19/2011 Hep B, Adolescent or Pediatric 03/20/2011,2010,08/02/2010 Influenza High-dose Quadriva lent Preservative Free 03/08/2023,02/09/2022,03/16/2021,02/08 Influenza injectable quadriv alent IIV4 with preservative 04/08/2019,03/06/2018,04/24/2017,02/17,03/26/2015 Influenza injectable quadriv alent preservative free 04/01/2014 Influenza, High Dose Seasona l, Preservative Free 02/19/2024 Influenza, Split (incl. taniya fied surface antigen) 02/10/2013,02/20/2012 MMR 03/20/2011 Moderna Covid-19 Vaccine 12+ 01/09/2022, 03/31/2021,08/10/2020,07/13 Pfizer Covid-19 Vaccine 12+ 02/19/2024 Pneumococcal Conjugate PCV 13 02/09/2020 Pneumococcal Conjugate PCV 20 03/08/2023 Pneumococcal Polysaccharide PPSV23 01/13/2013 TD (adult), 2 Lf tetanus tox oid, preservative free, adsorbed 02/09/2022 Tdap 05/19/2011 Zoster, Recombinant 10/04/2022,08/02/2022 Zoster, live 08/14/2016 Social History Tobacco Use Types Packs/Day Years Used Date Smoking Tobacco: Former Cigarettes Tobacco Cessation:Counseling Given: Not Answered Alcohol Use Standard Drinks/Week Comments Never 0 [...] Orientation Straight 03/20/2022 10 :15 AM EDT Last Filed Vital Signs Vital Sign Reading [...] Mass Index 26.89 09/04/2024 11:18 AM EDT Plan of Treatment Health Maintenance Due Date Last Done Comments CT Colonography 1954 Dental Oral Exam 1954 Dental Prophylaxis 1954 Dental X-Ray: Bitewings 1954 Dental X-Ray: Full Mouth 1954 FIT DNA/Cologuard 1954 FIT 1954 FOBT 1954 Sigmoidoscopy 1954 RSV Patients and Patients Aged 60 years or older (1 - Risk 60-74 years 1-dose series) 2014 Colonoscopy 03/13/2020 03/13/2013 Colorectal Cancer Screening 03/13/2020 Depression Monitoring 03/06/2025 09/04/2024, 025 Diabetes: Hemoglobin A1C 03/06/2025 025, 04/28/2024, 12/20/2023, Additional history exists Alcohol/Substance Use Screening 04/28/2025 04/28/2024 Diabetes: Foot Exam 04/28/2025 04/28/2024, 04/28/2024, 04/28/2024, Additional history exists Diabetes: Urine Protein Screening 04/28/2025 04/28/2024, 09/07/2022, 02/09/2022, Additional history exists Lipid Panel 04/28/2025 04/28/2024, 02/19, 09/07/2022, Additional history exists Depression Screening 09/04/2025 09/04/2024, 09/05/19 SDOH Screening 09/04/2025 09/04/2024 Tobacco Screening 09/04/2025 09/04/2024 Eye Exam 05/02/2026 05/02/2024, 04/20, 05/02/2024, Additional history exists DTaP/Tdap/Td Vaccines (3 - Td or Tdap) 02/10/2032 02/09/2022, 05/19/2011 Hepatitis B Vaccines Aged Out 03/20/2011, 09/06/2010, 08/02/2010 No longer eligible based on patient's age to complete this topic Hepatitis A Vaccines Aged Out 02/20/2012, 05/19/20 11 No longer eligible based on patient's age to complete this topic Zoster Vaccines Completed 10/04/2022, 07/19, 08/14/2016 Pneumococcal Vaccine: 50+ Years Completed 03/08/2023, 02/09/2020, 01/13/2013 COVID-19 Vaccine Completed 02/19/2024, , 03/31/2021, Additional history exists Influenza Vaccine Completed 02/19/2024, , 02/09/2022, Additional history exists Hepatitis C Screening Completed 04/28/2024 HIB Vaccines Aged Out No longer eligi ble based on patient's age to complete this topic HPV Vaccines Aged Out No longer eligi ble based on patient's age to complete this topic IPV Vaccines Aged Out No longer eligi ble based on patient's age to complete this topic Meningococcal Vaccine Aged Out No flaco amparo eligible based on patient's age to complete this topic RSV under 20 months Aged Out No longe r eligible based on patient's age to complete this topic Rotavirus Vaccines Aged Out No longer eligible based on patient's age to complete this topic Procedures Procedure Name Priority Date/Time Associated Diagnosis Comments COMPREHENSIVE METABOLIC PANEL Routine 09/04/2024 11:53 AM EDT Transaminitis CBC WITH AUTO DIFFERENTIAL Routine 09/04/2024 11:53 AM EDT Low platelet count (CMS/HCC) POCT GLYCATED HEMOGLOBIN, TOTAL Routine 09/04/2024 11:22 AM EDT Type 2 diabetes mellitus with other specified complication, without long-term current use of insulin (CMS/HCC) POCT GLUCOSE Routine 09/04/2024 11:21 AM EDT Type 2 diabetes mellitus with other specified complication, without long-term current use of insulin (CMS/HCC) NO CHARGE PROCEDURE Routine 07/04/2024 9 :15 AM EST HEPATITIS C AB W/REFL TO HCV RNA, QN, PCR Routine 04/28/2024 11:37 AM EST Need for hepatitis C screening test ALBUMIN, RANDOM URINE W/CREATININE Routine 04/28/2024 11:37 AM EST Type 2 diabetes mellitus with other specified complication, without long-term current use of insulin (CMS/HCC) Primary hypertension History of TIA (transient ischemic attack) LIPID PANEL, STANDARD Routine 04/28/2024 11:37 AM EST Type 2 diabetes mellitus with other specified complication, without long-term current use of insulin (CMS/HCC) Primary hypertension History of TIA (transient ischemic attack) HM COLONOSCOPY Routine 03/13/2013 11:53 AM EDT from Last 3 Months or Most Recently Relevant to Health Maintenance Results * (ABNORMAL) CBC auto differential (09/04/2024 11:53 AM EDT) White Blood Count 3.5(L) 4.8 - 10.8 X10*3/uL [facility] Red Blood Count 5.19 4.60 - 5.80 X10*6/uL [facility] Hemoglobin 15.2 14.0 - 18.0 g/dl [facility] Hematocrit 44.3 42.0 - 52.0 % [facility] Mean Corpuscular Volume 85.4 80.0 - 98.0 fL [facility] Mean Corpuscular Hemoglobin 29.3 27.0 - 33.0 pg [facility] Mean Corpuscular HGB Conc 34.3 31.0 - 36.0 g/dl [facility] Red Cell Distribution Width 13.1 11.0 - 16.0 % [facility] Platelet Count 161 160 - 400 X10*3/uL [facility] Mean Platelet Volume 11.7 9.4 - 12.4 fL [facility] Neutrophils Percent Auto 48.2 45 - 73 % [facility] Imm Gran Pct Auto 0.3 0.0 - 0.4 % [facility] Lymphocytes Percent Auto 35.5 20 - 40 % [facility] Monocytes Percent Auto 9.7 2 - 11 % [facility] Eosinophils Percent Auto 5.4(H) 0 - 4 % [facility] Basophils Percent Auto 0.9 0 - 2 % [facility] NRBC Pct Auto 0.0 0.0 - 0.2 /100WBC [facility] Neutrophils Absolute Auto 1.7(L) 2.0 - 8.3 x10*3/uL [facility] Imm Gran Abs Auto 0.01 0.00 - 0.03 X10*3/uL [facility] Lymphocytes Absolute Auto 1.2 1.2 - 4.9 X10*3/uL [facility] Monocytes Absolute Auto 0.3 0.1 - 1.2 X10*3/uL [facility] Eosinophils Absolute Auto 0.2 0.0 - 0.4 X10*3/uL [facility] Basophils Absolute Auto 0.0 0.0 - 0.2 X10*3/uL [facility] NRBC Abs Auto 0.000 0.0 - 0.012 X10*3/uL [facility] Blood Venous blood specimen / Unknown 09/04/2024 11:53 AM EDT 09/04/2024 1:15 PM EDT us Fuad Arroyo MD LAB BLOOD ORDERABLES Final Resul t [facility] [address] [place] [phone] * (ABNORMAL) Comprehensive Metabolic Panel (09/04/2024 11:53 AM EDT) Sodium 140 135 - 145 mmol/L [facility] Potassium 4.3 3.3 - 5.1 mmol/L [facility] Chloride 104 96 - 108 mmol/L [facility] Carbon Dioxide 29 22 - 29 mmol/L [facility] Anion Gap 11(L) 12 - 20 [facility] Urea Nitrogen (BUN) 25(H) 9 - 16 mg/dL [facility] Creatinine, Serum 0.84 0.5 - 1.4 mg/dL [facility] Estimated Glomerular Filt Rate >60 [facility] Comment:Chronic Kidney Disea se: Estimated GFR < 60 mL/min/[id number] Kidney Disease: Estimated GFR < 15 mL/min/1.73m2 Glucose 117(H) 60 - 115 mg/dL [facility] Calcium 9.2 8.4 - 10.2 mg/dL [facility] Bilirubin, Total 0.7 0.0 - 1.0 mg/dL [facility] Aspartate Amino Transferase 41(H) 5 - 37 U/L [facility] Alanine Aminotransferase 65(H) 0 - 40 U/L [facility] Total Protein 7.7 6.5 - 8.0 g/dL [facility] Albumin Level 4.0 3.5 - 5.0 g/dL [facility] Alkaline Phosphatase 111 39 - 117 U/L [facility] Blood Venous blood specimen / Unknown 09/04/2024 11:53 AM EDT 09/04/2024 1:15 PM EDT us Fuad Name LAB BLOOD ORDERABLES Final Resul t [facility] [address] [place] [address] [phone] * (ABNORMAL) POCT HGB A1C (09/04/2024 11:22 AM EDT) Hemoglobin A1C 6.5(A) 4.0 - 6.0 % QC Media Lot # [id number] Lot# Expiration Date [id number] Blood 09/04/2024 11:2 2 AM EDT us Fuad Arroyo MD POINT OF CARE TEST ENTER/EDIT OR DERABLES Final Result * POCT Glucose (09/04/2024 11:21 AM EDT) Glucose Blood, POC 132 60 - 200 mg/dL [employer] Media Lot # [id number] Lot# Expiration Date [id number] Blood Capillary blood specimen / Unknown 09/04/2024 11:21 AM EDT us Fuad Arroyo MD POINT OF CARE TEST ENTER/EDIT OR DERABLES Final Result * Albumin, Random Urine W/Creatinine (04/28/2024 11:37 AM EST) Creatinine, Urine 40.66 mg/dL [facility] Microalbumin Urine <5.0 mg/L [facility] Microalbum Creatinine Ratio Ur TNP <30 ug/mg cr [facility] Comment:Unable to calculate albumin/creatinine ratio due to lowmicroalbumin or creatinine result. Urine (Urine, Random) 04/28/2024 11:37 AM EST 04/28/2024 1:09 PM EST Result Gerardo Arroyo MD LAB URINE ORDERABLES Final Resul t [facility] [address] [place] [phone] * Hepatitis C Antibody with Reflex to HCV, RNA, Quantitative, Real-Time PCR (04/28/2024 11:37 AM EST) Hepatitis C Antibody Nonreactive Nonreactive [facility] Comment:Antibodies to HCV no t detected; does not exclude early acuteHCV infection. Blood Venous blood specimen / Unknown 04/28/2024 11:37 AM EST 04/28/2024 1:09 PM EST us Fuad Arroyo MD LAB BLOOD ORDERABLES Final Resul t [facility] [address] [place] [phone] * Lipid Panel, Standard (04/28/2024 11:37 AM EST) Triglycerides 118 <150 mg/dL [facility] Comment:Desirable Triglyceri de: less than 150 mg/dLBorderline High Triglyceride 150-199 mg/dLHigh Triglyceride: 200-499 mg/dLVery High Triglyceride: greater than or equal to 5OO mg/dL Cholesterol 130 <200 mg/dL [facility] Comment:Desirable Cholestero l: less than 200 mg/dLBorderline High Cholesterol: 200-239 mg/dLHigh Cholesterol: greater than 239 mg/dL LDL Cholesterol Calculated 60 <100 mg/dL [facility] Comment:Desirable LDL: less than 100 mg/dLNear Optimal/Above Optimal LDL: 110- 129 mg/dLBorderline High LDL: 130-159 mg/dLHigh LDL: 160-189 mg/dLVery High LDL: greater than or equal to 190 mg/dL HDL Cholesterol 47 >40 mg/dL [facility] Comment:Desirable HDL: great er than 40 mg/dL Note: This HDL assay may give artificially low results in patients with liver disease. Blood Venous blood specimen / Unknown 04/28/2024 11:37 AM EST 04/28/2024 1:09 PM EST us Fuad Arroyo MD LAB BLOOD ORDERABLES Final Resul t [facility] [address] [place] [address] [phone] * Colonoscopy (03/13/2013 11:53 AM EDT) Colonoscopy Normal Normal Narrative Bonnie Del Rio - 03/13/2013 11:53 AM EDT Recommended 7 year follow up ( [facility] ) us Historical Provider HEALTH MAINTENANCE Final Result from Last 3 Months or Most Recently Relevant to Health Maintenance Insurance [facility] STANDARD [facility] [employer]IT[employer] OPTIONS (O D-SNP) DENTAL - [facility] Care Teams Grain [employer] Products Inspector Relationship Specialty Start Date End Date Name, MD Fuad [address] [place], [place] [phone] PCP - General Family Medicine 07/23/15
--- OUTSIDE RECORDS SUMMARY | 2024-09-04 14:49 | XMS_ITS | Encounter Summary ---
Author Organization [employer] Address [address] [place] [address] Care Team Providers Care Racebook Writer Name Role Phone Name, Fuad MASSEY Primary Care Provider Encounter Details Date Type Department Care Team (Latest Contact Info) Description 09/04/2024 Travel Social History Tobacco Use Types Packs/Day Years [...] documented as of this encounter Care Teams Racebook Writer Relationship Specialty Start Date End Date Name, MD Fuad [address] [place] [address] PCP - General Family Medicine 07/23/15 documented as of this encounter
== END 2024-09-04 11:52 | disposition home or self-care (01) ==
LOC: HO.HHCL 11:51
PROVIDERS: Visit Provider Internal Medicine Geriatric Medicine
DX: R74.01 Elevation of levels of liver transaminase levels (principal); D69.6 Thrombocytopenia, unspecified
CPT/HCPCS: 36415; 80053; 85025

== ENCOUNTER 2025-01-29 08:16 | Outpatient (REF) | payer OTHER, SELFPAY ==
--- OUTSIDE RECORDS SUMMARY | 2025-01-28 11:30 | XMS_ITS | Encounter Summary ---
Author Organization [employer] Address [address] [place] [address] Care Team Providers Care Perforator Typist Name Role Phone Fuad Arroyo MD Primary Care Provider [phone] Reason for Referral * Consultation (Routine) - Pending Review Specialty Diagnoses / Procedures Referred By Manpreet aaron Referred To Contact Hand Surgery Diagnoses Ganglion cyst of volar aspect of right wrist Fuad Arroyo MD [address] [place] [address] Phone: tel: fax: Referral ID Status Reason Start Date Expiration Date Visits Requested Visits Authorized [id number] Pending Review Specialty Services Required 01/28/2025 01/28/2026 1 1 Reason for Visit * Reason Comments Follow-up Encounter Details Date Type Department Care Team ([facility] st Contact Info) Description 01/28/2025 11:30 AM EDT Office Visit [facility] MEDICINE [address] [place] [id number] Fuad Arroyo MD [address] [place] [id number] Type 2 diabetes mellitus with other specified complication, without long-term current use of insulin ([facility]) (Primary Dx); Ganglion cyst of volar aspect of right wrist; Hypertension, unspecified type; On statin therapy; Chronic pain of both knees Social History Tobacco Use Types Packs/Day Years Used Date Smoking Tobacco: Former Cigarettes Passive Smoke Exposure: Past Tobacco Cessation:Counseling Given: Not Answered Alcohol Use [...] Sign Reading Time Taken Comments Blood Pressure 120/72 01/28/2025 11:42 AM EDT Pulse 96 01/28/2025 11:42 AM EDT Temperature 36.1 C (97 F) 01/28/2025 11:42 AM EDT Respiratory Rate 12 01/28/2025 11:42 AM EDT Oxygen Saturation 98% 01/28/2025 11:42 AM EDT Inhaled Oxygen Concentration - - Weight 75.8 kg (167 lb) 01/28/2025 11:42 AM EDT Height 167.6 cm (5' 6 ) 01/28/2025 11:42 AM EDT Body Mass Index 26.95 01/28/2025 11:42 AM EDT documented in this encounter Progress Notes * Fuad Arroyo MD - 01/28/2025 11:30 AM EDT Subjective Patient ID: Kameron Peña is a 69 y.o. male who presents for Follow-up. Patient comes for follow-up visit. He is doing well. Blood sugar continues to be diet controlled. BP is good. He has a history of TIA in the past but he denies any recurrent symptoms. He is using hiscardioprotective regimen as prescribed. Today he complains of years of bilateral knee pain that is worse with walking. He describes crepitus of both knees precipitated by active and passive range of motion. He explains to me that he was told years ago that at some point he will need a knee replacement surgery. He uses naproxen several times a week with symptomatic improvement of the knee pain. He does not have any swelling of the kneesor recent trauma. The patient also has a ganglion cyst on the right wrist. He was already seen for this complaint at walk-in clinic and recommended observation. The cyst is getting bigger and the patient is interestedin having it removed. Review of Systems Constitutional: Negative for chills, fatigue and fever. HENT: Negative for sore throat. Respiratory: Negative for cough, chest tightness and shortness of breath. Cardiovascular: Negative for chest pain, palpitations and leg swelling. Gastrointestinal: Negative for abdominal pain and blood in stool. Musculoskeletal: See HPI Objective Vitals: 01/28/25 1142 BP: 120/72 BP Location: Left arm Patient Position: Sitting BP Cuff Size: Adult Pulse: 96 Resp: 12 Temp: 97 ??F (36.1 ??C) TempSrc: Temporal SpO2: 98% Weight: 167 lb (75.8 kg) Height: 5' 6 (1.676 m) Physical Exam Constitutional: Appearance: Normal appearance. Cardiovascular: Rate and Rhythm: Normal rate and regular rhythm. Pulses: Dorsalis pedis pulses are 3+ on the right side and 3+ on the left side. Posterior tibial pulses are 3+ on the right side and 3+ on the left side. Heart sounds: No murmur heard. Pulmonary: Effort: Pulmonary effort is normal. No respiratory distress. Breath sounds: No wheezing, rhonchi or rales. Abdominal: Palpations: Abdomen is soft. Tenderness: There is no abdominal tenderness. Musculoskeletal: Right knee: Crepitus present. Decreased range of motion. Tenderness present. Left knee: Crepitus present. Decreased range of motion. Tenderness present. Right lower leg: No edema. Left lower leg: No edema. Right foot: Normal range of motion. Left foot: Normal range of motion. Feet: Right foot: Protective Sensation: 5 sites tested. 5 sites sensed. Skin integrity: Skin integrity normal. Toenail Condition: Right toenails are normal. Left foot: Protective Sensation: 5 sites tested. 5 sites sensed. Skin integrity: Skin integrity normal. Toenail Condition: Left toenails are normal. Neurological: Mental Status: He is alert. Assessment/Plan Diagnoses and all orders for this visit: Type 2 diabetes mellitus with other specified complication, without long-term current use of insulin ([facility]) Comments: Continue to avoid sweets and soda and walk as much as possible. Check fasting blood work listed below. Orders: - POCT Glucose - POCT Hgb A1c - CBC auto differential; Future - Comprehensive Metabolic Panel; Future - Albumin, Random Urine W/Creatinine; Future - Lipid Panel, Standard; Future Ganglion cyst of volar aspect of right wrist Comments: I will refer the patient to hand surgeon Orders: - Referral to Hand Surgery; Future Hypertension, unspecified type Comments: Continue lisinopril/HCTZ. Continue aspirin and statin. Recheck fasting blood work. Orders: - CBC auto differential; Future - Comprehensive Metabolic Panel; Future - Albumin, Random Urine W/Creatinine; Future - Lipid Panel, Standard; Future On statin therapy - CBC auto differential; Future - Comprehensive Metabolic Panel; Future - Albumin, Random Urine W/Creatinine; Future - Lipid Panel, Standard; Future Chronic pain of both knees Comments: Likely secondary to DJD. Continue as needed naproxen and check x-rays. Orders: - XR Knee 1-2 Views Bilateral; Future Future Appointments Date Time Provider Department Center 06/17/2025 10:00 AM TARA Busby [facility] documented in this encounter Plan of Treatment Upcoming Encounters Date Type Department Care Team (Late st Contact Info) Description 06/17/2025 10:00 AM EST Office Visit [facility] OPTOMETRY [address] [place] [address] Nela Warren, OD [address] [place] [address] Scheduled Orders Name Type Priority Associated Diagnoses Orde r Schedule CBC auto differential Lab Routine Type 2 diabetes mellitus with other specified complication, without long-term current use of insulin ([facility]) Hypertension, unspecified type On statin therapy Expected: 01/28/2025 (Approximate), Expires: 01/28/2026 Comprehensive Metabolic Panel Lab Routine Type 2 diabetes mellitus with other specified complication, without long-term current use of insulin (CMS/HCC) Hypertension, unspecified type On statin therapy Expected: 01/28/2025 (Approximate), Expires: 01/28/2026 Albumin, Random Urine W/Creatinine Lab Routine Type 2 diabetes mellitus with other specified complication, without long-term current use of insulin (CMS/HCC) Hypertension, unspecified type On statin therapy Expected: 01/28/2025 (Approximate), Expires: 01/28/2026 Lipid Panel, Standard Lab Routine Type 2 diabetes mellitus with other specified complication, without long-term current use of insulin (CMS/HCC) Hypertension, unspecified type On statin therapy Expected: 01/28/2025 (Approximate), Expires: 01/28/2026 Scheduled Referrals Name Type Priority Associated Diagnoses Orde r Schedule Referral to Hand Surgery Outpatient Referral Routine Ganglion cyst of volar aspect of right wrist Expected: 01/28/2025 (Approximate), Expires: 01/28/2026 documented as of this encounter Procedures Procedure Name Priority Date/Time Associated Diagnosis Comments XR KNEE 1-2 VIEWS BILATERAL Routine 01/29/2025 8:54 AM EDT Chronic pain of both knees POCT GLYCATED HEMOGLOBIN, TOTAL Routine 01/28/2025 11:43 AM EDT Type 2 diabetes mellitus with other specified complication, without long-term current use of insulin ([facility]) POCT GLUCOSE Routine 01/28/2025 11:43 AM EDT Type 2 diabetes mellitus with other specified complication, without long-term current use of insulin ([facility]) documented in this encounter Results * XR Knee 1-2 Views Bilateral (01/29/2025 8:54 AM EDT) Anatomical Region Laterality Modality Lower Extremities, Knee Bilateral Radiogra phic Imaging 01/29/2025 8:54 AM EDT Narrative 01/29/2025 9:01 AM EDT [address] [address] XRay Report Signed Patient: Kameron Buchanan MR# : [id number] : 1955 Acct:[id number] Age/Sex: 69 / M ADM Date: 01/29/25 Loc: .[facility] Attending Dr: Fuad Arroyo MD Ordering Physician: Fuad Arroyo MD Date of Service: 01/29/25 Procedure(s): XR Knee Isael 1or 2V Accession Number(s): [id number] cc: Fuad Arroyo MD Reason for Exam: pain EXAMINATION: EXAMINATION: XR KNEE AP STANDING CLINICAL INFORMATION: pain COMPARISON: None available. TECHNIQUE: AP bilateral standing view of the knees was obtained. Lateral views both knees.. FINDINGS: Joint space narrowing involving medial lateral compartment with mild sclerosis along the articular surface of the tibial plateau. No acute cortical disruption or malalignment. No lytic or blastic lesions. No suprapatellar bursa joint effusion. No calcifications in the menisci region. Vascular calcifications. XR/XR Knee Isael 1or 2V IMPRESSION: Mild bicompartmental osteoarthrosis/osteoarthritis. Atherosclerosis disease, peripheral Electronically signed by: Omar Cole MD 01/29/2025 08:58 AM EDT Dictated By: Omar Michel MD Signed By: <Electronically signed by Omar Alcantar MD in OV> 01/29/25 0858 DD/ TD/TT: 01/29/25854 Shade Bander: Procedure Note Donotuseinterpreter, Image - 01/29/[address] [address] XRay Report Signed Patient: Kameron BuchananMR# : [id number] : 5Acct:[id number] Age/Sex: 69 / MADM Date: 01/29/25 Loc: [facility] Attending Dr: Fuad Arroyo MD Ordering Physician: Fuad Arroyo MD Date of Service: 01/29/25 Procedure(s): XR Knee Isael 1or 2V Accession Number(s): [id number] cc: Fuad Arroyo MD Reason for Exam: pain EXAMINATION: EXAMINATION: XR KNEE AP STANDING CLINICAL INFORMATION: pain COMPARISON: None available. TECHNIQUE: AP bilateral standing view of the knees was obtained. Lateral views both knees.. FINDINGS: Joint space narrowing involving medial lateral compartment with mild sclerosis along the articular surface of the tibial plateau. No acute cortical disruption or malalignment. No lytic or blastic lesions. No suprapatellar bursa joint effusion. No calcifications in the menisci region. Vascular calcifications. XR/XR Knee Isael 1or 2V IMPRESSION: Mild bicompartmental osteoarthrosis/osteoarthritis. Atherosclerosis disease, peripheral Electronically signed by: Omar Cole MD 01/29/2025 08:58 AM EDT Dictated By: Omar Michel MD Signed By: <Electronically signed by Omar Alcantar MDin OV> 01/29/25 0858 DD/ 0854 TD/TT: 01/29/25 0855 Shade Bander: us Fuad Arroyo MD IMG XR PROCEDURES Final Result * (ABNORMAL) POCT Hgb A1c (01/28/2025 11:43 AM EDT) Hemoglobin A1C 6.5(A) 4.0 - 5.7 % QC Media Lot # [id number] Lot# Expiration Date 41,627 Blood 01/28/2025 11:4 3 AM EDT us Fuad Arroyo MD POINT OF CARE TEST ENTER/EDIT OR DERABLES Final Result * POCT Glucose (01/28/2025 11:43 AM EDT) Glucose Blood, POC 185 60 - 200 mg/dL QC Media Lot # [id number] Lot# Expiration Date Blood Capillary blood specimen / Unknown 01/28/2025 11:43 AM EDT Fuad Arroyo MD POINT OF CARE TEST ENTER/EDIT OR DERABLES Final Result documented in this encounter Visit Diagnoses Diagnosis Type 2 diabetes mellitus with other specified complication, without long-term current use of insulin ([facility])- Primary Ganglion cyst of volar aspect of right wrist Hypertension, unspecified type On statin therapy Chronic pain of both knees documented in this encounter Additional Health Concerns Assessment Noted Time PHQ-9 Depression Total Score: 27 025 11:38 AM EDT documented as of this encounter Care Teams Perforator Typist Relationship Specialty Start Date End Date Name, MD Fuad [address] [place] [address] PCP - General Family Medicine 07/23/15 documented as of this encounter
--- NOTE | ~2025-01-29 | XR_ITS ---
EXAMINATION: EXAMINATION: XR KNEE AP STANDING CLINICAL INFORMATION: pain COMPARISON: None available. TECHNIQUE: AP bilateral standing view of the knees was obtained. Lateral views both knees.. FINDINGS: Joint space narrowing involving medial lateral compartment with mild sclerosis along the articular surface of the tibial plateau. No acute cortical disruption or malalignment. No lytic or blastic lesions. No suprapatellar bursa joint effusion. No calcifications in the menisci region. Vascular calcifications. XR/XR Knee Isael 1or 2V IMPRESSION: Mild bicompartmental osteoarthrosis/osteoarthritis. Atherosclerosis disease, peripheral Electronically signed by: Omar Cole MD 01/29/2025 08:58 AM EDT
--- OUTSIDE RECORDS SUMMARY | 2025-01-29 09:10 | XMS_ITS | Encounter Summary ---
Author Organization [employer] Address [address] [place] [address] [address] Care Team Providers Care Cloth Printing Back Tender Name Role Phone Name, Fuad MASSEY Primary Care Provider [phone] Reason for Visit * Reason Comments Med Refill Encounter Details Date Type Department Care Team (Late st Contact Info) Description 06/25/2024 Refill [facility] MED & PEDS [address] [place], [place] [phone] [facility] [address] [place] [address] Heartburn Social History Tobacco Use Types Packs/Day [...] as of this encounter Plan of Treatment Upcoming Encounters Date Type Department Care Team (Late st Contact Info) Description 06/17/2025 10:00 AM EST Office Visit [facility] OPTOMETRY [address] [place] [address] Kelvin, Nela, OD [address] [place] [address] documented as of this encounter Visit Diagnoses Diagnosis Heartburn documented in this encounter Additional Health Concerns Assessment Noted Time PHQ-9 Depression Total Score: 0 09/11/19 24 10:55 AM EDT documented as of this encounter Care Teams Cloth Printing Back Tender Relationship Specialty Start Date End Date Name, MD Fuad [address] [place] [address] PCP - General Family Medicine 07/23/15 documented as of this encounter
--- OUTSIDE RECORDS SUMMARY | 2025-01-29 09:11 | XMS_ITS | Encounter Summary ---
Author Organization [employer] Address [address] [place] [address] Care Team Providers Care Land Surveyor Name Role Phone Name, Fuad MASSEY Primary Care Provider [phone] Reason for Visit * Reason Comments Med Refill Encounter Details Date Type Department Care Team ([facility] st Contact Info) Description 11/05/2023 Refill [facility] [address] [place], [place] [phone] Name, MD Fuad [address] [place] [address] Social History Tobacco Use Types Packs/Day Years [...] Description 06/17/2025 10:00 AM EST Office Visit [facility] OPTOMETRY [address] [place], [place] [phone] Kelvin, Megan, OD [address] [place] [address] documented as of this encounter Visit Diagnoses Not on filedocumented in this encounter Additional Health Concerns Assessment Noted Time PHQ-9 Depression Total Score: 0 09/11/19 24 10:55 AM EDT documented as of this encounter Care Teams Land Surveyor Relationship Specialty Start Date End Date Name, MD Fuad [address] [place] [address] PCP - General Family Medicine 07/23/15 documented as of this encounter
--- OUTSIDE RECORDS SUMMARY | 2025-01-29 09:11 | XMS_ITS | Encounter Summary ---
Author Organization [employer] Address [address] [place] [address] [address] Care Team Providers Care Superintendent General Name Role Phone Name, Fuad MASSEY Primary Care Provider [phone] Encounter Details Date Type Department Care Team (Late Contact Info) Description 10/23/2022 Abstract [facility] MEDIC[facility] [address] [place] [address] Name, MD Fuad [address] [place] [address] Social History Tobacco Use Types Packs/Day Years [...] Description 06/17/2025 10:00 AM EST Office Visit [facility] OPTOMETRY [address] [place], [place] [phone] Kelvin, Nela, OD [address] [place] [address] documented as of this encounter Procedures Procedure Name Priority Date/Time Associated Diagnosis Comments COLONOSCOPY Routine 03/13/2013 11:53 AM EDT documented in this encounter Results * Colonoscopy (03/13/2013 11:53 AM EDT) Colonoscopy Normal Normal Narrative Bonnie Del Rio - 03/13/2013 11:53 AM EDT Recommended 7 year follow up ( [facility] ) Historical Provider HEALTH MAINTENANCE Final Result documented in this encounter Visit Diagnoses Not on filedocumented in this encounter Additional Health Concerns Assessment Noted Time PHQ-9 Depression Total Score: 0 09/07/19 23 11:16 AM EDT documented as of this encounter Care Teams Superintendent General Relationship Specialty Start Date End Date Name, MD Fuad [address] [place] [address] PCP - General Family Medicine 07/23/15 documented as of this encounter
--- OUTSIDE RECORDS SUMMARY | 2025-01-29 09:11 | XMS_ITS | Encounter Summary ---
Author Organization [employer] Address [address] [facility] [address] [address] Care Team Providers Care Cooling Pan Tender Name Role Phone Name, Fuad MASSEY Primary Care Provider [phone] Reason for Visit * Reason Onset Date Comments Chart Prep 01/26/2025 Encounter Details Date Type Department Care Team (Late st Contact Info) Description 01/26/2025 Telephone [facility] P[facility] [address] [place], [place] [phone] Name, MD Fuad [address] [place] [address] Chart Prep Social History Tobacco Use Types Packs/Day Years Used Date Smoking Tobacco: Former Cigarettes Passive Smoke Exposure: Past Alcohol Use Standard Drinks/Week Comments Never 0 [...] encounter Miscellaneous Notes * Telephone Encounter - Marni Quan [place] - 01/26/2025 9:14 AM EDT Chart Prep Labs: done Images: not applicable Referrals: not applicable Vaccines due: Covid, Flu, and RSV Screenings: colonoscopy Overdue care gaps: Glucose, Oral health screening, Disability screen, and Tobacco documented in this encounter Plan of Treatment Upcoming Encounters Date Type Department Care Team (Late st Contact Info) Description 06/17/2025 10:00 AM EST Office Visit [facility] OPTOMETRY [address] [place] [address] Kelvin, Nela, OD [address] [place] [address] documented as of this encounter Visit Diagnoses Not on filedocumented in this encounter Additional Health Concerns Assessment Noted Time PHQ-9 Depression Total Score: 27 025 11:38 AM EDT documented as of this encounter Care Teams Cooling Pan Tender Relationship Specialty Start Date End Date Name, MD Fuad [address] [place] [address] PCP - General Family Medicine 07/23/15 documented as of this encounter
--- OUTSIDE RECORDS SUMMARY | 2025-01-29 09:11 | XMS_ITS | Encounter Summary ---
Author Organization [employer] Address [address] [address] Care Team Providers Care Traffic Control Technician Name Role Phone Name, Fuad MASSEY Primary Care Provider Reason for Visit * Reason Comments Med Refill Encounter Details Date Type Department Care Team ([facility] st Contact Info) Description 05/29/2023 Refill [facility] MED[facility] [address] [place], [place] [phone] Name, MD Fuad [address] [place], [place] [phone] High triglycerides Social History Tobacco Use Types Packs/Day Years Used Date Smoking Tobacco: Former Cigarettes Alcohol Use Standard Drinks/Week Comments Never 0 (1 standard drink = 0.6 oz pur e alcohol) Depression Answer Date Recorded Patient Health Questionnaire-9 Score 0 09/06/2022 Housing Stability Answer Date Recorded What is your housing situation today? I have kallienathalie ramos 03/07/[address] you [...] Description 06/17/2025 10:00 AM EST Office Visit [facility] OPTOMETRY [address] [place] [address] KelvinNela saavedra, OD [address] [place] [address] documented as of this encounter Visit Diagnoses Diagnosis High triglycerides Unspecified disorder of lipoid metabolism documented in this encounter Additional Health Concerns Assessment Noted Time PHQ-9 Depression Total Score: 0 09/07/19 23 11:16 AM EDT documented as of this encounter Care Teams Traffic Control Technician Relationship Specialty Start Date End Date Name, MD Fuad [address] [place] [address] PCP - General Family Medicine 07/23/15 documented as of this encounter
--- OUTSIDE RECORDS SUMMARY | 2025-01-29 09:11 | XMS_ITS | Encounter Summary ---
Author Organization [employer] Address [address] [facility] [address] [place] [address] Care Team Providers Care Dietary Aid Name Role Phone Name, Fuad MASSEY Primary Care Provider [phone] Reason for Visit * Reason Comments Med Refill Encounter Details Date Type Department Care Team (Late st Contact Info) Description 06/28/2023 Refill [facility] MED & PEDS [address] [place], [place] [phone] Name, MD Fuad [address] [place] [address] Chronic pain syndrome Social History Tobacco Use [...] t he electric, gas, oil or water [employer] threatened to shut off services in your [...] Description 06/17/2025 10:00 AM EST Office Visit [facility] OPTOMETRY [address] [place] [address] Nela Warren, OD [address] [place] [address] documented as of this encounter Visit Diagnoses Diagnosis Chronic pain syndrome documented in this encounter Additional Health Concerns Assessment Noted Time PHQ-9 Depression Total Score: 0 09/07/19 23 11:16 AM EDT documented as of this encounter Care Teams Dietary Aid Relationship Specialty Start Date End Date Name, MD Fuad [address] [place] [address] PCP - General Family Medicine 07/23/15 documented as of this encounter
--- OUTSIDE RECORDS SUMMARY | 2025-01-29 09:11 | XMS_ITS | Encounter Summary ---
Author Organization [employer] Address [address] [place] [address] Care Team Providers Care Precision Honing Machine Operator Name Role Phone Name, Fuad MASSEY Primary Care Provider [phone] Encounter Details Date Type Department Care Team (Late st Contact Info) Description 04/28/2022 Orders Only [facility] [address] [place] [address] Radha Thomson LPN Social History Tobacco Use [...] 10:00 AM EST Office Visit [facility] OPTOMETRY [address] [place] [address] Kelvin, Nela, OD [address] [place] [address] documented as of this encounter Visit Diagnoses Not on filedocumented in this encounter Care Teams Precision Honing Machine Operator Relationship Specialty Start Date End Date Name, MD Fuad [address] [place] [address] PCP - General Family Medicine 07/23/15 documented as of this encounter
--- OUTSIDE RECORDS SUMMARY | 2025-01-29 09:11 | XMS_ITS | Encounter Summary ---
Author Organization [employer] Address [address] [place] [address] Care Team Providers Care Pillowcase Cutter Name Role Phone Name, Fuad MASSEY Primary Care Provider [phone] Reason for Visit * Reason Onset Date Comments rs appt 12/15/2024 Encounter Details Date Type Department Care Team ([facility] st Contact Info) Description 12/15/2024 Telephone [facility] ADULT DENTAL [address] [place] [address] Anisha, Asuncion [address] [place] [address] rs appt Social History Tobacco Use Types Packs/Day Years [...] encounter Miscellaneous Notes * Telephone Encounter - Cate Domingo - 12/15/2024 1:05 PM EDT Patient is a [facility] dental patient. Patient was scheduled in [facility] and he states that he was schedule [facility] without his knowledge . Upon reviewing his chart, It was explained to patient that more than likely he was scheduled in [facility] due to no appt availability in [facility]. Patient explained that he wanted togo to [facility]. Explained to patient that there was no available appts in [facility] at the time. The he can get a call for scheduling for be seen in [facility] for the opportunity to be seen. Patient continued to repeat himself and eventually said Bye Call was disconnected DR documented in this encounter Plan of Treatment Upcoming Encounters Date Type Department Care Team (Late st Contact Info) Description 06/17/2025 10:00 AM EST Office Visit [facility] OPTOMETRY [address] [place] [address] Kelvin, Nela, OD [address] [place] [address] documented as of this encounter Visit Diagnoses Not on filedocumented in this encounter Additional Health Concerns Assessment Noted Time PHQ-9 Depression Total Score: 27 025 11:38 AM EDT documented as of this encounter Care Teams Pillowcase Cutter Relationship Specialty Start Date End Date Name, MD Fuad [address] [place] [address] PCP - General Family Medicine 07/23/15 documented as of this encounter
--- OUTSIDE RECORDS SUMMARY | 2025-01-29 09:11 | XMS_ITS | Encounter Summary ---
Author Organization [employer] Address [address] [place] [address] Care Team Providers Care Shipping Assistant Name Role Phone Name, Fuad MASSEY Primary Care Provider [phone] Encounter Details Date Type Department Care Team (Late st Contact Info) Description 07/20/2022 Orders Only [facility] CHC MED & PEDS [address] [place] [address] Jeanine Reyes LPN Social History Tobacco Use [...] Description 06/17/2025 10:00 AM EST Office Visit [facility] OPTOMETRY [address] [place] [address] Kelvin, Nela, OD [address] [place] [address] documented as of this encounter Visit Diagnoses Not on filedocumented in this encounter Care Teams Shipping Assistant Relationship Specialty Start Date End Date Name, MD Fuad [address] [place] [address] PCP - General Family Medicine 07/23/15 documented as of this encounter
--- OUTSIDE RECORDS SUMMARY | 2025-01-29 09:11 | XMS_ITS | Encounter Summary ---
Author Organization [employer] Address [address] [place] [address] Care Team Providers Care Risk Compliance Manager Name Role Phone Name, Fuad MASSEY Primary Care Provider [phone] Reason for Visit * Reason Comments Med Refill Encounter Details Date Type Department Care Team ([facility] st Contact Info) Description 10/29/2023 Refill [facility] MEDICINE [address] [place], [place] [phone] Name, MD Fuad [address] [place] [address] Social History Tobacco Use Types Packs/Day Years [...] 10:00 AM EST Office Visit [facility] OPTOMETRY [address] [place], [place] [phone] Kelvin, Megan, OD [address] [place] [address] documented as of this encounter Visit Diagnoses Not on filedocumented in this encounter Additional Health Concerns Assessment Noted Time PHQ-9 Depression Total Score: 0 09/11/19 24 10:55 AM EDT documented as of this encounter Care Teams Risk Compliance Manager Relationship Specialty Start Date End Date Name, MD Fuad [address] [place] [address] PCP - General Family Medicine 07/23/15 documented as of this encounter
--- OUTSIDE RECORDS SUMMARY | 2025-01-29 09:11 | XMS_ITS | Encounter Summary ---
Author Organization [employer] Address [address] [place] [address] Care Team Providers Care Patch Sander Name Role Phone Name, Fuad MASSEY Primary Care Provider [phone] Encounter Details Date Type Department Care Team (Late st Contact Info) Description 06/27/2022 Orders Only [facility] CHC MED & PEDS [address] [place] [address] Jeanine Reyes LPN Social History Tobacco Use [...] Description 06/17/2025 10:00 AM EST Office Visit [facility] OPTOMETRY [address] [place] [address] Kelvin, Nela, OD [address] [place] [address] documented as of this encounter Visit Diagnoses Not on filedocumented in this encounter Care Teams Patch Sander Relationship Specialty Start Date End Date Name, MD Fuad [address] [place] [address] PCP - General Family Medicine 07/23/15 documented as of this encounter
--- OUTSIDE RECORDS SUMMARY | 2025-01-29 09:11 | XMS_ITS | Clinical Summary ---
Author Organization [employer] Address [address] [place] [address] [address], [place] [address] Care Team Providers Care Director Of Curriculum Name Role Phone Name, Fuad MASSEY Primary Care Provider [phone] Allergies No known active allergies Medications atorvastatin (Lipitor) 80 MG tabletIndications :Chronic pain syndrome TAKE 1 TABLET BY MOUTH EVERY MORNING 90 tablet 3 07/24/19 25 Active lisinopril-hydroC HLOROthiazide 20-12.5 MG tablet TAKE 1 TABLET BY MOUTH EVERY MORNING 90 tablet 3 07/24/19 25 Active aspirin (Aspirin Low Dose) 81 MG EC tabletIndications :TIA (transient ischemic attack) TAKE 1 TABLET BY MOUTH EVERY MORNING 90 tablet 1 08/26/19 25 Active gabapentin (Neurontin) 100 MG capsule Take 2 capsules (200 mg) by mouth at bedtime. 60 capsule 11 09/05/19 25 026 Active loratadine (Claritin) 10 MG tabletIndications :Other seasonal allergic rhinitis TAKE 1 TABLET BY MOUTH EVERY DAY 90 tablet 3 12/11/19 25 Active omega-3 (Fish Oil) 1000 MG capsuleIndication s:High triglycerides TAKE 1 CAPSULE BY MOUTH TWICE DAILY (for cholesterol) 180 capsule 1 01/02/20 25 Active omeprazole (PriLOSEC) [address] capsuleIndication s:Heartburn TAKE 1 CAPSULE BY MOUTH EVERY DAY IN THE MORNING 30 capsule 01/08/20 25 Active naproxen (Naprosyn) 500 MG tablet TAKE 1 TABLET BY MOUTH TWICE DAILY 60 tablet 01/08/20 25 Active omega-3 (Fish Oil) 1000 MG capsuleIndication s:High triglycerides TAKE 1 CAPSULE BY MOUTH TWICE DAILY (for cholesterol) 60 capsule 8 03/18/20 24 025 Discontinued omeprazole (PriLOSEC) 20 MG capsuleIndication s:Heartburn TAKE 1 CAPSULE BY MOUTH EVERY MORNING 30 capsule 11/27/19 025 Discontinued naproxen (Naprosyn) 500 MG tablet TAKE 1 TABLET BY MOUTH TWICE DAILY 60 tablet 11/27/19 25 025 Discontinued Active Problems Problem Noted Date Diagnosed Date [...] Encounters Date Type Department Care Team Description 01/28/2025 11:30 AM EDT Office Visit [facility] MEDICINE [address] [place] [phone] Fuad Arroyo MD Type 2 diabetes mellitus with other specified complication, without long-term current use of insulin ([facility]) (Primary Dx); Ganglion cyst of volar aspect of right wrist; Hypertension, unspecified type; On statin therapy; Chronic pain of both knees 01/28/2025 Travel 01/26/2025 Telephone [facility] MED & PEDS [address] [place] [address] Fuad Arroyo MD Chart Prep 01/12/2025 10:00 AM EDT Office Visit [facility] WALK-IN CENTER [address] [place] [address] Roro Carmona MD Ganglion cyst of volar aspect of right wrist (Primary Dx) 01/12/2025 Travel 01/06/2025 Refill [facility] MED [facility] PED[facility] [address] [place] [address] Fuad Arroyo MD Heartburn 01/01/2025 Refill [facility] MEDICINE [address] [place] [address] Fuad Arroyo MD High triglycerides 12/18/2024 9:00 AM EDT Office Visit [facility] CHC ADULT DENTAL [address] [place] [address] Hakeem Acosta Dental calculus (Primary Dx) 12/15/2024 Telephone [facility] ADULT DENTAL [address] [place] [address] Asuncion Lancaster rs appt 12/10/2024 Refill [facility] MEDICINE [address] [place] [address] Name, MD Fuad Other seasonal allergic rhinitis 11/26/2024 Refill [facility] MED [facility] PED[facility] [address] [place], [place] [phone] Name, MD Fuad Heartburn 11/19/2024 11:00 AM EDT Office Visit [facility] ADULT DENTAL [address] [place] [address] Elizabeth Garner DDS Encounter for dental examination (Primary Dx); Edentulism from Last 3 Months Immunizations Immunization Administration Dates Next Due Hep A, Adult [...] Mass Index 26.95 01/28/2025 11:42 AM EDT Plan of Treatment Upcoming Encounters Date Type Department Care Team (Late st Contact Info) Description 06/17/2025 10:00 AM EST Office Visit [facility] OPTOMETRY [address] [place] [address] Kelvin, Nela, OD [address] [place] [address] Health Maintenance Due Date Last Done Comments CT Colonography 1955 Dental X-Ray: Bitewings 1955 FIT DNA/Cologuard 1955 FIT 1955 FOBT 1955 Sigmoidoscopy 1955 RSV Patients and Patients Aged 60 years or older (1 - Risk 60-74 years 1-dose series) 2014 Colonoscopy 03/13/2020 03/13/2013 Colorectal Cancer Screening 03/13/2020 COVID-19 Vaccine ( season) 2025 02/19/2024, 01/09/2022, 03/31/2021, Additional history exists Influenza Vaccine (#1) 2025 , 03/08/2023, 02/09/2022, Additional history exists Depression Monitoring 03/06/2025 09/04/2024, 025 Alcohol/Substance Use Screening 04/28/2025 04/28/2024 Diabetes: Urine Protein Screening 04/28/2025 04/28/2024, 09/07/2022, 02/09/2022, Additional history exists Lipid Panel 04/28/2025 04/28/2024, 02/19, 09/07/2022, Additional history exists Dental Oral Exam 05/23/2025 11/19/2024 Dental Prophylaxis 06/21/2025 12/18/2024 Diabetes: Hemoglobin A1C 07/28/2025 025, 09/04/2024, 04/28/2024, Additional history exists SDOH Screening 09/04/2025 09/04/2024 Diabetes: Foot Exam 01/28/2026 01/28/2025, 01/28/2025, 01/28/2025, Additional history exists Tobacco Screening 01/28/2026 01/28/2025 Eye Exam 05/02/2026 05/02/2024, 04/20, 05/02/2024, Additional history exists Dental X-Ray: Full Mouth 11/21/2027 11/19/2024 DTaP/Tdap/Td Vaccines (3 - Td or Tdap) 02/10/2032 02/09/2022, 05/19/2011 Hepatitis B Vaccines Aged Out 03/20/2011, 09/06/2010, 08/02/2010 No longer eligible based on patient's age to complete this topic Hepatitis A Vaccines Aged Out 02/20/2012, 05/19/20 11 No longer eligible based on patient's age to complete this topic Zoster Vaccines Completed 10/04/2022, 07/19, 08/14/2016 Pneumococcal Vaccine: 50+ Years Completed 03/08/2023, 02/09/2020, 01/13/2013 Hepatitis C Screening Completed 04/28/2024 HIB Vaccines Aged Out No longer eligi ble based on patient's age to complete this topic HPV Vaccines Aged Out No longer eligi ble based on patient's age to complete this topic IPV Vaccines Aged Out No longer eligi ble based on patient's age to complete this topic Meningococcal B Vaccine Aged Out No l onger eligible based on patient's age to complete [...] use of insulin (CMS/HCC) POCT GLUCOSE Routine 01/28/2025 11:43 AM EDT Type 2 diabetes mellitus with other specified complication, without long-term current use of insulin (CMS/HCC) CLEANING AND INSPECTION OF REM COMPLETE DENTURE, MAX Routine 12/18/2024 9:00 AM EDT CASE PRESENTATION, DETAILED AND EXTENSIVE TREATMENT PLANNING Routine 12/18/2024 9:00 AM EDT ORAL HYGIENE INSTRUCTIONS Routine 12/18/2024 9:00 AM EDT PROPHYLAXIS - ADULT Routine 12/18/2024 9 :00 AM EDT CLEANING AND INSPECTION OF RPD, DANTE Routine 12/18/2024 9:00 AM EDT CASE PRESENTATION, DETAILED AND EXTENSIVE TREATMENT PLANNING Routine 11/19/2024 11:00 AM EDT PANORAMIC RADIOGRAPHIC IMAGE Routine 11/19/2024 11:00 AM EDT PERIODIC ORAL EVALUATION - ESTABLISHED PATIENT Routine 11/19/2024 11:00 AM EDT HEPATITIS C AB W/REFL TO HCV RNA, [...] Recently Relevant to Health Maintenance Results * XR Knee 1-2 Views Bilateral (01/29/2025 8:54 AM EDT) Anatomical Region Laterality Modality Lower Extremities, Knee Bilateral Radiogra phic Imaging 01/29/2025 8:54 AM EDT Narrative 01/29/2025 9:01 AM EDT [address] [address] XRay Report Signed Patient: Kameron Buchanan MR# : [id number] : 1955 Acct:[id number] Age/Sex: 69 / M ADM Date: 01/29/25 Loc: [facility] Attending Dr: Fuad Arroyo MD Ordering Physician: Fuad Arroyo MD Date of Service: 01/29/25 Procedure(s): XR Knee Isael 1or 2V Accession Number(s): [id number] cc: Fuad Arroyo MD Reason for Exam: [...] in OV> 01/29/25 0858 DD/ TD/TT: 01/29/25854 Footwear Sales Representative: Procedure Note Donotuseinterpreter, Image - 01/29/[address] [address] XRay Report Signed Patient: Kameron BuchananMR# : [id number] : 5Acct:[id number] Age/Sex: 69 / MADM Date: 01/29/25 Loc: HO.[facility] Attending Dr: Fuad Arroyo MD Ordering Physician: Fuad Arroyo MD Date of Service: 01/29/25 Procedure(s): XR Knee Isael 1or 2V Accession Number(s): [id number] cc: Fuad Arroyo MD Reason for Exam: [...] 01/29/25 0858 DD/ 0854 TD/TT: 01/29/25 0855 Footwear Sales Representative: us Fuad Arroyo MD IMG XR PROCEDURES Final Result * (ABNORMAL) POCT Hgb A1c (01/28/2025 11:43 AM EDT) Pathologist [facility] Hemoglobin A1C 6.5(A) 4.0 - 5.7 % QC Media Lot # [id number] Lot# Expiration Date [id number] Blood 01/28/2025 11:4 3 AM EDT us Fuad Arroyo MD POINT OF CARE TEST ENTER/EDIT OR DERABLES Final Result * POCT Glucose (01/28/2025 11:43 AM EDT) Glucose Blood, POC 185 60 - 200 mg/dL QC Media Lot # [id number] Lot# Expiration Date Blood Capillary blood specimen / Unknown 01/28/2025 11:43 AM EDT Result Gerardo Arroyo MD POINT OF CARE TEST ENTER/EDIT OR DERABLES Final Result * Albumin, Random Urine W/Creatinine (04/28/2024 11:37 AM EST) Pathologist [facility] Creatinine, Urine 40.66 mg/dL [facility] Microalbumin Urine <5.0 mg/L [facility] Microalbum Creatinine Ratio Ur TNP <30 ug/mg cr [facility] Comment:Unable to calculate albumin/creatinine ratio due to lowmicroalbumin or creatinine result. Urine (Urine, Random) 04/28/2024 11:37 AM EST 04/28/2024 1:09 PM EST us Fuad Arroyo MD LAB URINE ORDERABLES Final Resul t Performing Organization Address [facility] de Phone Number [facility] [address] [place] [phone] * Hepatitis C Antibody with Reflex to HCV, RNA, Quantitative, Real-Time PCR (04/28/2024 11:37 AM EST) Pathologist [facility] Hepatitis C Antibody Nonreactive Nonreactive [facility] Comment:Antibodies to HCV no t detected; does not exclude early acuteHCV infection. Blood Venous blood specimen / Unknown 04/28/2024 11:37 AM EST 04/28/2024 1:09 PM EST us Fuad Arroyo MD LAB BLOOD ORDERABLES Final Resul t Performing Organization Address [facility] de Phone Number [facility] [address] [place] [phone] * Lipid Panel, Standard (04/28/2024 11:37 AM EST) Pathologist [facility] Triglycerides 118 <150 mg/dL [facility] Comment:Desirable Triglyceri de: less than 150 mg/dLBorderline High Triglyceride 150-199 mg/dLHigh Triglyceride: 200-499 mg/dLVery High Triglyceride: greater than or equal to 5OO mg/dL Cholesterol 130 <200 mg/dL [facility] Comment:Desirable Cholestero l: less than 200 mg/dLBorderline High Cholesterol: 200-239 mg/dLHigh Cholesterol: greater than 239 mg/dL LDL Cholesterol Calculated 60 <100 mg/dL [facility] Comment:Desirable LDL: less than 100 mg/dLNear Optimal/Above Optimal LDL: 110- 129 mg/dLBorderline High LDL: 130-159 mg/dLHigh LDL: 160-189 mg/dLVery High LDL: greater than or equal to 190 mg/dL HDL Cholesterol 47 >40 mg/dL [facility] Comment:Desirable HDL: great er than 40 mg/dL Note: This HDL assay may give artificially low results in patients with liver disease. Blood Venous blood specimen / Unknown 04/28/2024 11:37 AM EST 04/28/2024 1:09 PM EST us Fuad Name LAB BLOOD ORDERABLES Final Resul t [facility] [address] [place] [phone] * Colonoscopy (03/13/2013 11:53 AM EDT) Colonoscopy Normal Normal Narrative Bonnie Del Rio - 03/13/2013 11:53 AM EDT Recommended 7 year [place] ( [facility] Historical Provider HEALTH MAINTENANCE Final Result from Last 3 Months or Most Recently Relevant to Health Maintenance Insurance [facility] STANDARD [facility] CARE HOME OPTIONS (HMO D-SNP) [facility] Care Teams Director Of Curriculum Relationship Specialty Start Date End Date Name, MD Fuad [address] [place] [address] PCP - General Family Medicine 07/23/15
--- OUTSIDE RECORDS SUMMARY | 2025-01-29 09:11 | XMS_ITS | Encounter Summary ---
Author Organization [employer] Address [address] [place] [address] Care Team Providers Care Lead Technical Writer Name Role Phone Name, Fuad MASSEY Primary Care Provider [phone] Encounter Details Date Type Department Care Team (Late st Contact Info) Description 05/31/[address] [facility] MEDICINE [address] [place] [address] Radha Thomson LPN Social History Tobacco Use [...] Description 06/17/2025 10:00 AM EST Office Visit [facility] OPTOMETRY [address] [place] [address] Kelvin, Nela, OD [address] [place] [address] documented as of this encounter Visit Diagnoses Not on filedocumented in this encounter Care Teams Lead Technical Writer Relationship Specialty Start Date End Date Name, MD Fuad [address] [place] [address] PCP - General Family Medicine 07/23/15 documented as of this encounter
--- OUTSIDE RECORDS SUMMARY | 2025-01-29 09:11 | XMS_ITS | Encounter Summary ---
Author Organization [employer] Address [address] [place] [address] Care Team Providers Care Personal Protection Specialist Name Role Phone Name, Fuad MASSEY Primary Care Provider [phone] Reason for Visit * Reason Comments Med Refill Encounter Details Date Type Department Care Team ([facility] st Contact Info) Description 11/29/2023 Refill [facility] MEDICINE [address] [place], [place] [phone] Name, MD Fuad [address] [place], [place] [phone] TIA (transient ischemic attack) Social History Tobacco [...] 10:00 AM EST Office Visit [facility] OPTOMETRY [address] [place] [address] Nela Warren, OD [address] [place] [address] documented as of this encounter Visit Diagnoses Diagnosis TIA (transient ischemic attack) Unspecified transient cerebral ischemia documented in this encounter Additional Health Concerns Assessment Noted Time PHQ-9 Depression Total Score: 0 09/11/19 24 10:55 AM EDT documented as of this encounter Care Teams Personal Protection Specialist Relationship Specialty Start Date End Date Name, MD Fuad [address] [place] [address] PCP - General Family Medicine 07/23/15 documented as of this encounter
--- OUTSIDE RECORDS SUMMARY | 2025-01-29 09:11 | XMS_ITS | Encounter Summary ---
Author Organization [employer] Address [address] [facility] [address] [place] [address] Care Team Providers Care Shipping Receiving Manager Name Role Phone Name, Fuad MASSEY Primary Care Provider [phone] Encounter Details Date Type Department Care Team (Latest Contact Info) Description 01/28/2025 Travel Social History Tobacco Use Types Packs/Day [...] Description 06/17/2025 10:00 AM EST Office Visit [facility] OPTOMETRY [address] [place] [address] Nela Warren, OD [address] [place] [address] documented as of this encounter Visit Diagnoses Not on filedocumented in this encounter Additional Health Concerns Assessment Noted Time PHQ-9 Depression Total Score: 27 025 11:38 AM EDT documented as of this encounter Care Teams Shipping Receiving Manager Relationship Specialty Start Date End Date Name, MD Fuad [address] [place] [address] PCP - General Family Medicine 07/23/15 documented as of this encounter
[2025-01-29 11:39] LABS: MANUAL DIFF FLAG NO
[2025-01-29 11:43] LABS: Hematocrit 42.1 % (42.0-52.0); Hemoglobin 14.1 g/dl (14.0-18.0); Imm Gran Abs Auto 0.00 X10*3/uL (0.00-0.03); Imm Gran Pct Auto 0.0 % (0.0-0.4); Lymphocytes Absolute Auto 1.3 X10*3/uL (1.2-4.9); Mean Corpuscular HGB Conc 33.5 g/dl (31.0-36.0); Mean Corpuscular Hemoglobin 28.8 pg (27.0-33.0); Mean Corpuscular Volume 86.1 fL (80.0-98.0); NRBC Abs Auto 0.000 X10*3/uL (0.0-0.012); NRBC Pct Auto 0.0 /100WBC (0.0-0.2); Platelet Count 150 X10*3/uL (160-400); Red Blood Count 4.89 X10*6/uL (4.60-5.80); White Blood Count 3.8 X10*3/uL (4.8-10.8)
[2025-01-29 12:11] LABS: Alanine Aminotransferase 47 U/L (0-40); Albumin Level 4.1 g/dL (3.5-5.0); Alkaline Phosphatase 116 U/L (39-117); Anion Gap 10 (12-20); Aspartate Amino Transferase 35 U/L (5-37); Blood Urea Nitrogen 23 mg/dL (9-16); Calcium 8.9 mg/dL (8.4-10.2); Carbon Dioxide 30 mmol/L (22-29); Chloride 105 mmol/L (96-108); Cholesterol 113 mg/dL (<200); Estimated Glomerular Filt Rate > 60; HDL Cholesterol 44 mg/dL (>40); Potassium 3.8 mmol/L (3.3-5.1); Sodium 141 mmol/L (135-145); Total Protein 7.4 g/dL (6.5-8.0); Triglycerides 94 mg/dL (<150)
[2025-01-29 13:00] LABS: Microalbum/Creatinine Ratio Ur 5.4 ug/mg cr (<30)
== END 2025-01-29 08:17 | disposition home or self-care (01) ==
LOC: HO.HHCL 08:16
PROVIDERS: PCP Internal Medicine Geriatric Medicine; Visit Provider Internal Medicine Geriatric Medicine
DX: M25.561 Pain in right knee (principal); M25.562 Pain in left knee; G89.29 Other chronic pain; M23.8X1 Other internal derangements of right knee; E11.69 Type 2 diabetes mellitus with other specified complication; I10 Essential (primary) hypertension; Z79.899 Other long term (current) drug therapy; M23.8X2 Other internal derangements of left knee
CPT/HCPCS: 36415; 73560; 80053; 80061; 82043; 82570; 85025

== ENCOUNTER → 2025-01-29 08:33 | Outpatient (BNV) | payer OTHER, SELFPAY | PROVIDERS: PCP Internal Medicine Geriatric Medicine; Visit Provider Radiology Diagnostic Radiology | DX: M25.561 Pain in right knee (principal); M25.562 Pain in left knee; I73.9 Peripheral vascular disease, unspecified | CPT/HCPCS: 73560 ==